=== PATIENT | female | born 1980 | race African-American/Black ===

== ENCOUNTER 2017-05-06 03:47 | Emergency (ER) | payer SELFPAY ==
[2017-05-06 03:58] VITALS: BMI 36.7
--- NOTE | 2017-05-06 04:11 | DR.GENAD ---
HPI - PCP Primary Care Physician: NFD - Complaint/Symptoms Chief Complaint:: "For about 4 days I have been coughing and having shortness of breath. I can walk to the bathroom and it feels like I have ran around the block. When I lay down I really can't breath, so I just sit up." - Nurses notes reviewed Nurses Notes Review: Yes - Source History Provided: Patient - Mode of Arrival Mode of Arrival: Ambulatory - Timing Onset of Chief Complaint: 05/01/17 Came on: Gradually - Duration Duration: Constant How lon Duration: Days - Location Location: lungs - Severity Severity: Moderate - Modifying Factors Worsens:: lying down - Associated Signs and Symptoms Associated Signs and Symptoms: cough - Other History Other History: albuterol PMH - PMH Past Medical History: No Past Medical History: Hypertension Past Surgical History: Yes 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 - Family History History of Family Medical Conditions: No - Social History Does patient currently use any type of tobacco product: No Have you used tobacco products in the last 12 months: No Type of Tobacco Use: None Does any household member use tobacco: No Alcohol Use: Occasionally Do you use any recreational Drugs:: No Lives With: Family Lives Where: Home - infectious screening In the last 2 months have you had wt loss of >10#?: NO Have you had fever, night sweats or hemotysis?: No Have you traveled outside the country in the last 6 months?: No Isolation: Standard ROS - Review of Systems Constitutional: No Symptoms Reported Eyes: No Symptoms Reported ENTM: No Symptoms Reported Respiratoy: Non-Productive Cough, Short of Breath Cardiovascular: No Symptoms Reported Gastrointestinal/Abdominal: No Symptoms Reported Genitourinary: No Symptoms Reported Neurological: No Symptoms Reported Musculoskeletal: No Symptoms Reported Integumentary: No Symptoms Reported, Dryness Endocrine: No Symptoms Reported Psychiatric: No Symptoms Reported PE - Vital Signs Vitals: Temperature 98.2 F Pulse Rate 82 Respiratory Rate 18 Blood Pressure [Left Arm] 166/99 Blood Pressure 201/125 O2 Sat by Pulse Oximetry 98 - General Limitations: No Limitations General Appearance: Alert, In No Apparent Distress - Head Head Exam: Normal Inspection - Eyes Eye exam: Normal Appearance, EOMI. negative: Scleral Icterus, Conjunctival Injection - ENT Mouth Exam: Normal Inspection - Neck Neck Exam: Normal Inspection, Full ROM, Trachea Midline - Chest Chest Inspection: Normal Inspection - Respiratory Respiratory Exam: Normal Lung Sounds Bilat. negative: Accessory Muscle Use, Respiratory Distress Respiratory Exam: Bilateral Wheezing (mild) - Cardiovascular Cardiovascular Exam: Regular Rate - Extremities Extremities Exam: Normal Inspection, Full ROM - Back Back Exam: Normal Inspection - Neurologic Neurological Exam: Alert, Oriented X3, CN II-XII Intact - Psychiatric Psychiatric Exam: Flat Affect - Skin Skin Exam: Intact, Normal Color Course - Treatment Treatment: breathing better now ROR - Labs Reviewed Result Diagrams: 05/06/17 04:35 05/06/17 04:35 Laboratory: WBC 6.7 X10^3/uL (3.6-10.0) 05/06/17 04:35 RBC 5.06 X10^6/uL (3.5-5.4) 05/06/17 04:35 Hgb 12.9 g/dL (12.0-16.0) 05/06/17 04:35 Hct 38.5 % (36.0-47.0) 05/06/17 04:35 MCV 76.2 fL (80.0-100.0) L 05/06/17 04:35 MCH 25.6 pg (27.0-34.0) L 05/06/17 04:35 MCHC 33.6 g/dL (33.0-35.0) 05/06/17 04:35 RDW 16.5 % (11.6-16.5) 05/06/17 04:35 Plt Count 209 X10^3/uL (150.0-450.0) 05/06/17 04:35 Plt Count Comment Adequate (ADEQUATE) 05/06/17 04:35 MPV 9.2 fL (7.4-11.0) 05/06/17 04:35 Neut % 47.2 % (42.0-75.0) 05/06/17 04:35 Lymph % 41.4 % (21.0-51.0) 05/06/17 04:35 [place] % 6.4 % (0.0-13.0) 05/06/17 04:35 Eos % 3.9 % (0.9-2.9) H 05/06/17 04:35 Baso % 1.1 % (0.2-1.0) H 05/06/17 04:35 Neut # 3.2 x10^3/uL (2.2-4.8) 05/06/17 04:35 Lymph # 2.8 X10^3/uL (1.3-2.9) 05/06/17 04:35 [place] # 0.4 x10^3/uL (0.3-0.8) 05/06/17 04:35 Eos # 0.3 x10^3/uL (0.0-0.2) H 05/06/17 04:35 Baso # 0.1 X10^3/uL (0.0-0.1) 05/06/17 04:35 Absolute Nucleated RBC 0.1 /100WBC 05/06/17 04:35 Plt Morphology Comment Normal (NORMAL) 05/06/17 04:35 RBC Morphology Normal (NORMAL) 05/06/17 04:35 Sodium 139 mmol/L (136-145) 05/06/17 04:35 Corrected Sodium TNP 05/06/17 04:35 Potassium 4.1 mmol/L (3.5-5.1) 05/06/17 04:35 Chloride 104 mmol/L (98-107) 05/06/17 04:35 Carbon Dioxide 26.4 mmol/L (21-32) 05/06/17 04:35 BUN 14 mg/dL (7-18) 05/06/17 04:35 Creatinine 0.96 mg/dL (0.55-1.02) 05/06/17 04:35 Est GFR (MDRD) Af Amer > 60 (>60) 05/06/17 04:35 Est GFR (MDRD) Non-Af > 60 (>60) 05/06/17 04:35 Glucose 100 mg/dL (65-99) H 05/06/17 04:35 Calcium 8.8 mg/dL (8.5-10.1) 05/06/17 04:35 Corrected Calcium TNP 05/06/17 04:35 Total Bilirubin 0.80 mg/dL (0.2-1.0) 05/06/17 04:35 AST 16 Units/L (15-37) 05/06/17 04:35 ALT 23 Units/L (12-78) 05/06/17 04:35 Alkaline Phosphatase 48 Units/L (46-116) 05/06/17 04:35 Creatine Kinase 93 Units/L (26-192) 05/06/17 04:35 CK-MB (CK-2) < 1.0 ng/mL (0-4.0) 05/06/17 04:35 CK/CKMB % Calc 1.1 % (<4) 05/06/17 04:35 Troponin I < 0.02 ng/mL (0-1.5) 05/06/17 04:35 B-Natriuretic Peptide 163 pg/mL (0-79) H 05/06/17 04:35 Total Protein 8.0 g/dL (6.4-8.2) 05/06/17 04:35 Albumin 3.7 g/dL (3.4-5.0) 05/06/17 04:35 Globulin 4.3 g/dL (2.5-4.5) 05/06/17 04:35 Albumin/Globulin Ratio 0.9 Ratio (1.1-2.1) L 05/06/17 04:35 - EKG Rate: 93 [place]: Normal Rhythm: NSR Block: None Hypertrophy: LAE ST: Normal - Diagnosis Discharge Problem: Congestive heart failure Qualifiers: Congestive heart failure type: unspecified congestive heart failure type Congestive heart failure chronicity: acute Qualified Code(s): I50.9 - Heart failure, unspecified - Discharge Plan Condition: Stable - Follow ups/Referrals Follow ups/Referrals: NFD,None [Primary Care Provider] - 3 days - Instructions
[2017-05-06] MEDS ORDERED: DUONEB 0.5 MG/3 MG NEB ONE (04:23)
[2017-05-06] MEDS ORDERED: CATAPRES TAB 0.2 MG PO ONE (04:23)
[2017-05-06] MEDS ORDERED: DUONEB 0.5 MG/3 MG ONE (04:24)
[2017-05-06] MEDS ORDERED: CATAPRES TAB 0.2 MG ONE (04:45)
[2017-05-06 04:47] LABS: BASOPHILS # (AUTO) 0.1 X10^3/uL (0.0-0.1); BASOPHILS % (AUTO) 1.1 % (0.2-1.0); EOSINOPHILS # (AUTO) 0.3 x10^3/uL (0.0-0.2); EOSINOPHILS % (AUTO) 3.9 % (0.9-2.9); HEMATOCRIT 38.5 % (36.0-47.0); HEMOGLOBIN 12.9 g/dL (12.0-16.0); LYMPHOCYTES # (AUTO) 2.8 X10^3/uL (1.3-2.9); LYMPHOCYTES % (AUTO) 41.4 % (21.0-51.0); MEAN CORPUSCULAR HEMOGLOBIN 25.6 pg (27.0-34.0); MEAN CORPUSCULAR HGB CONC 33.6 g/dL (33.0-35.0); MEAN CORPUSCULAR VOLUME 76.2 fL (80.0-100.0); MEAN PLATELET VOLUME 9.2 fL (7.4-11.0); MONOCYTES # (AUTO) 0.4 x10^3/uL (0.3-0.8); MONOCYTES % (AUTO) 6.4 % (0.0-13.0); NEUTROPHILS # (AUTO) 3.2 x10^3/uL (2.2-4.8); NEUTROPHILS % (AUTO) 47.2 % (42.0-75.0); PLATELET COUNT 209 X10^3/uL (150.0-450.0); RED BLOOD COUNT 5.06 X10^6/uL (3.5-5.4); RED CELL DISTRIBUTION WIDTH 16.5 % (11.6-16.5); WHITE BLOOD COUNT 6.7 X10^3/uL (3.6-10.0)
[2017-05-06] MEDS ORDERED: LASIX IVP ONE ×2 (04:53)
[2017-05-06 05:06] LABS: BLOOD UREA NITROGEN 14 mg/dL (7-18); CALCIUM 8.8 mg/dL (8.5-10.1); CARBON DIOXIDE 26.4 mmol/L (21-32); CHLORIDE 104 mmol/L (98-107); CREATININE 0.96 mg/dL (0.55-1.02); GLUCOSE 100 mg/dL (65-99); SODIUM 139 mmol/L (136-145); TROPONIN I < 0.02 ng/mL (0-1.5); eGFR BLACK RACES > 60 (>60); eGFR NON BLACK RACES > 60 (>60)
[2017-05-06 05:10] LABS: ALANINE AMINOTRANSFERASE 23 Units/L (12-78); ALBUMIN 3.7 g/dL (3.4-5.0); ALKALINE PHOSPHATASE 48 Units/L (46-116); ASPARTATE AMINO TRANSFERASE 16 Units/L (15-37); CKMB % 1.1 % (<4); CREATINE KINASE 93 Units/L (26-192); CREATINE KINASE MB < 1.0 ng/mL (0-4.0)
[2017-05-06 05:13] LABS: B-TYPE NATRIURETIC PEPTIDE 163 pg/mL (0-79)
[2017-05-06 05:16] LABS: PLATELET MORPHOLOGY COMMENT NORMAL (NORMAL)
[2017-05-06 05:46] VITALS: BP 166/99
--- NOTE | 2017-05-06 06:28 | RAD ---
Chest PA and lateral Indication: Dyspnea. Comparison: March 05, 2016 Findings: There is no pneumothorax. There is cardiomegaly and increased interstitial markings. No co nvincing large effusion seen. Patchy opacity in the lung bases could reflect edema but developing pn eumonia not completely excluded. Impression cardiomegaly and edema suggesting CHF. Underlying pneumonia not completely excluded. Foll owup to resolution. Reported By:
== END 2017-05-06 06:32 | disposition home or self-care (01) ==
LOC: ER 03:47
DX: I50.9 Heart failure, unspecified (principal); I51.7 Cardiomegaly; R06.02 Shortness of breath
CPT/HCPCS: 36415; 71020; 80053; 82550; 82553; 83880; 84484; 85025; 93005; 93010; 94640; 96367; 96374; 99283; A4216; A4222; J1940; J7620

== ENCOUNTER 2017-05-29 16:11 | Observation (INO) | payer SELFPAY ==
[2017-05-29] MEDS ORDERED: CATAPRES TAB 0.2 MG PO ONE (17:34)
[2017-05-29] MEDS ORDERED: CATAPRES TAB 0.2 MG ONE ×2 (17:36→23:19)
--- NOTE | 2017-05-29 17:51 | DR.GENAD ---
HPI - PCP Primary Care Physician: NFD - Complaint/Symptoms Chief Complaint Doctors Comments: chest pain and SOB Chief Complaint:: CHEST HURTS AND SOB Self Treatment fo Chief Complaint: BP MEDS, WATER PILL - Nurses notes reviewed Nurses Notes Review: Yes - Source History Provided: Patient - Mode of Arrival Mode of Arrival: Ambulatory - Timing Onset of Chief Complaint: 05/26/17 Came on: Suddenly - Duration Duration: Since Onset How lon Duration: Hours - Severity Severity: Moderate - Modifying Factors Worsens:: walking - Associated Signs and Symptoms Associated Signs and Symptoms: SOB, no nausea PMH - PMH Past Medical History: Yes Past Medical History: Hypertension Past Surgical History: Yes 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 Past Surgical History Comment: TUBAL - Family History History of Family Medical Conditions: No - Social History Does patient currently use any type of tobacco product: No Have you used tobacco products in the last 12 months: No Type of Tobacco Use: None Does any household member use tobacco: No Alcohol Use: Occasionally Do you use any recreational Drugs:: No Lives With: Alone, Family Lives Where: Home - infectious screening In the last 2 months have you had wt loss of >10#?: NO Have you had fever, night sweats or hemotysis?: No Have you traveled outside the country in the last 6 months?: No Isolation: Standard ROS - Review of Systems Constitutional: No Symptoms Reported Eyes: No Symptoms Reported ENTM: No Symptoms Reported Respiratoy: No Symptoms Reported Cardiovascular: No Symptoms Reported, Chest Pain Gastrointestinal/Abdominal: No Symptoms Reported Genitourinary: No Symptoms Reported Neurological: No Symptoms Reported Musculoskeletal: No Symptoms Reported Integumentary: No Symptoms Reported Hematologic/Lymphatic: No Symptoms Reported Endocrine: No Symptoms Reported Psychiatric: No Symptoms Reported All Other Systems: Reviewed and Negative PE - Vital Signs Vitals: Temperature 98.8 F Pulse Rate [Left] 78 Pulse Rate 88 Respiratory Rate 16 Blood Pressure [Left Arm] 161/99 Blood Pressure 207/118 O2 Sat by Pulse Oximetry 95 - General Limitations: No Limitations General Appearance: Alert, In No Apparent Distress - Head Head Exam: Normal Inspection - Eyes Eye exam: Normal Appearance, PERRL, EOMI - ENT ENT Exam: Normal Exam External Ear Exam: Normal External Inspection TM/Canal Exam: Bilateral Normal Nose Exam: Normal Nose Exam Mouth Exam: Normal Inspection Throat Exam: Normal Inspection - Neck Neck Exam: Normal Inspection, Full ROM, Trachea Midline - Chest Chest Inspection: Normal Inspection, Symmetric Chest Wall Rise. negative: Tenderness - Respiratory Respiratory Exam: Normal Lung Sounds Bilat Respiratory Exam: Bilateral Clear to Auscultation - Cardiovascular Cardiovascular Exam: Regular Rate, Normal Rhythm, Normal Heart Sounds - Abdominal Exam Abdominal Exam: Normal Inspection, Normal Bowel Sounds, Soft - Extremities Extremities Exam: Normal Inspection, Full ROM - Back Back Exam: Normal Inspection, Full ROM - Neurologic Neurological Exam: Alert, Oriented X3, CN II-XII Intact - Psychiatric Psychiatric Exam: Normal Affect, Normal Mood - Skin Skin Exam: Warm, Dry, Intact, Normal Color Course - Reevaluation 1st: Improved (176/105) ROR - Labs Reviewed Result Diagrams: 05/29/17 18:02 05/29/17 18:02 Laboratory: WBC 8.2 X10^3/uL (3.6-10.0) 05/29/17 18:02 RBC 4.54 X10^6/uL (3.5-5.4) 05/29/17 18:02 Hgb 11.8 g/dL (12.0-16.0) L 05/29/17 18:02 Hct 35.1 % (36.0-47.0) L 05/29/17 18:02 MCV 77.3 fL (80.0-100.0) L 05/29/17 18:02 MCH 26.0 pg (27.0-34.0) L 05/29/17 18:02 MCHC 33.6 g/dL (33.0-35.0) 05/29/17 18:02 RDW 16.3 % (11.6-16.5) 05/29/17 18:02 Plt Count 194 X10^3/uL (150.0-450.0) 05/29/17 18:02 MPV 9.8 fL (7.4-11.0) 05/29/17 18:02 Neut % 61.7 % (42.0-75.0) 05/29/17 18:02 Lymph % 29.6 % (21.0-51.0) 05/29/17 18:02 [place] % 4.6 % (0.0-13.0) 05/29/17 18:02 Eos % 3.3 % (0.9-2.9) H 05/29/17 18:02 Baso % 0.8 % (0.2-1.0) 05/29/17 18:02 Neut # 5.1 x10^3/uL (2.2-4.8) H 05/29/17 18:02 Lymph # 2.4 X10^3/uL (1.3-2.9) 05/29/17 18:02 [place] # 0.4 x10^3/uL (0.3-0.8) 05/29/17 18:02 Eos # 0.3 x10^3/uL (0.0-0.2) H 05/29/17 18:02 Baso # 0.1 X10^3/uL (0.0-0.1) 05/29/17 18:02 Absolute Nucleated RBC 0.1 /100WBC 05/29/17 18:02 Sodium 141 mmol/L (136-145) 05/29/17 18:02 Corrected Sodium TNP 05/29/17 18:02 Potassium 4.3 mmol/L (3.5-5.1) 05/29/17 18:02 Chloride 107 mmol/L (98-107) 05/29/17 18:02 Carbon Dioxide 29.1 mmol/L (21-32) 05/29/17 18:02 BUN 21 mg/dL (7-18) H 05/29/17 18:02 Creatinine 1.01 mg/dL (0.55-1.02) 05/29/17 18:02 Est GFR (MDRD) Af Amer > 60 (>60) 05/29/17 18:02 Est GFR (MDRD) Non-Af > 60 (>60) 05/29/17 18:02 Glucose 92 mg/dL (65-99) 05/29/17 18:02 Calcium 8.6 mg/dL (8.5-10.1) 05/29/17 18:02 Corrected Calcium TNP 05/29/17 18:02 Total Bilirubin 1.00 mg/dL (0.2-1.0) 05/29/17 18:02 AST 31 Units/L (15-37) 05/29/17 18:02 ALT 39 Units/L (12-78) 05/29/17 18:02 Alkaline Phosphatase 45 Units/L (46-116) L 05/29/17 18:02 Lactate Dehydrogenase 295 Units/L (81-234) H 05/29/17 22:44 Creatine Kinase 144 Units/L (26-192) 05/29/17 18:02 CK-MB (CK-2) < 1.0 ng/mL (0-4.0) 05/29/17 18:02 CK/CKMB % Calc 0.7 % (<4) 05/29/17 18:02 Troponin I < 0.02 ng/mL (0-1.5) 05/29/17 18:02 B-Natriuretic Peptide 340 pg/mL (0-79) H 05/29/17 18:02 Total Protein 7.4 g/dL (6.4-8.2) 05/29/17 18:02 Albumin 3.5 g/dL (3.4-5.0) 05/29/17 18:02 Globulin 3.9 g/dL (2.5-4.5) 05/29/17 18:02 Albumin/Globulin Ratio 0.9 Ratio (1.1-2.1) L 05/29/17 18:02 HCG, Qual Negative <10 mIU/mL 05/29/17 18:02 Specimen Type Clean catch urine 05/29/17 23:28 Urine Color Pale yellow (YELLOW) 05/29/17 23: Urine Appearance Clear (CLEAR) 05/29/17 23: Urine pH 7.0 (5.0 - 8.0) 05/29/17 23:28 Ur Specific [place] 1.010 (1.000-1.030) 05/29/17 23:28 Urine Protein Negative (NEGATIVE) 05/29/17 23:28 Urine Glucose (UA) Negative (NEGATIVE) 05/29/17 23:28 Urine Ketones Negative (NEGATIVE) 05/29/17 23:28 Urine Occult Blood Negative (NEGATIVE) 05/29/17 23: Urine Nitrite Negative (NEGATIVE) 05/29/17 23: Urine Bilirubin Negative (NEGATIVE) 05/29/17 23:28 Urine Urobilinogen Normal (NORMAL) 05/29/17 23:28 Ur Leukocyte Esterase Negative (NEGATIVE) 05/29/17 23:28 Urine RBC 0-3 /HPF (NEGATIVE) 05/29/17 23:28 Urine WBC 0-3 /HPF (NEGATIVE) 05/29/17 23:28 Ur Squamous Epith Cells Rare /HPF (NEGATIVE) 05/29/17 23:28 Urine Bacteria Negative /HPF (NEGATIVE) 05/29/17 23:28 Ur Culture Indicated? No/not indicated 05/29/17 23:28 Urine Opiates Screen Negative (NEG=<300) 05/29/17 23: Urine Methadone Screen Negative (NEG=<300) 05/29/17 23: Ur Barbiturates Screen Negative (NEG=<200) 05/29/17 23: Ur Phencyclidine Scrn Negative (NEG=<25) 05/29/17 23:28 Ur Amphetamines Screen Negative (NEG=<1000) 05/29/17 23: U Benzodiazepines Scrn Negative (NEG=<200) 05/29/17 23: Urine Cocaine Screen Negative (NEG=<300) 05/29/17 23: U Marijuana (THC) Screen Negative (NEG=<50) 05/29/17 23:28 - Diagnosis Discharge Problem: Congestive heart failure, Hypertensive cardiomegaly with heart failure - Discharge Plan Condition: Stable - Follow ups/Referrals Follow ups/Referrals: NFD,None [Primary Care Provider] - 3 days - Instructions Instructions: Nonspecific Chest Pain, Nonspecific Chest Pain, [id number], Hypertension, [id number], Hypertension
[2017-05-29 18:13] LABS: BASOPHILS # (AUTO) 0.1 X10^3/uL (0.0-0.1); BASOPHILS % (AUTO) 0.8 % (0.2-1.0); EOSINOPHILS # (AUTO) 0.3 x10^3/uL (0.0-0.2); EOSINOPHILS % (AUTO) 3.3 % (0.9-2.9); HEMATOCRIT 35.1 % (36.0-47.0); HEMOGLOBIN 11.8 g/dL (12.0-16.0); LYMPHOCYTES # (AUTO) 2.4 X10^3/uL (1.3-2.9); LYMPHOCYTES % (AUTO) 29.6 % (21.0-51.0); MEAN CORPUSCULAR HGB CONC 33.6 g/dL (33.0-35.0); MEAN CORPUSCULAR VOLUME 77.3 fL (80.0-100.0); MEAN PLATELET VOLUME 9.8 fL (7.4-11.0); MONOCYTES # (AUTO) 0.4 x10^3/uL (0.3-0.8); MONOCYTES % (AUTO) 4.6 % (0.0-13.0); NEUTROPHILS # (AUTO) 5.1 x10^3/uL (2.2-4.8); NEUTROPHILS % (AUTO) 61.7 % (42.0-75.0); PLATELET COUNT 194 X10^3/uL (150.0-450.0); RED BLOOD COUNT 4.54 X10^6/uL (3.5-5.4); RED CELL DISTRIBUTION WIDTH 16.3 % (11.6-16.5); WHITE BLOOD COUNT 8.2 X10^3/uL (3.6-10.0)
--- NOTE | 2017-05-29 18:16 | RAD ---
Chest, one view Indication: Shortness of breath, chest pain. Comparison: 05/06/2017 Findings: There is unchanged cardiac silhouette enlargement. There is diffuse interstitial thickenin g throughout both lungs. No definite focal infiltrates or significant pleural effusion. The bony tho rax is unremarkable. Impression: Cardiomegaly with suggestion of mild CHF. Reported By:
[2017-05-29 18:27] LABS: SERUM PREGNANCY TEST, QUAL NEGATIVE <10 mIU/mL
[2017-05-29 18:29] LABS: BLOOD UREA NITROGEN 21 mg/dL (7-18); CALCIUM 8.6 mg/dL (8.5-10.1); CARBON DIOXIDE 29.1 mmol/L (21-32); CHLORIDE 107 mmol/L (98-107); CREATININE 1.01 mg/dL (0.55-1.02); GLUCOSE 92 mg/dL (65-99); SODIUM 141 mmol/L (136-145); TROPONIN I < 0.02 ng/mL (0-1.5); eGFR BLACK RACES > 60 (>60); eGFR NON BLACK RACES > 60 (>60)
[2017-05-29 18:33] LABS: ALANINE AMINOTRANSFERASE 39 Units/L (12-78); ALBUMIN 3.5 g/dL (3.4-5.0); ALKALINE PHOSPHATASE 45 Units/L (46-116); ASPARTATE AMINO TRANSFERASE 31 Units/L (15-37); CKMB % 0.7 % (<4); CREATINE KINASE 144 Units/L (26-192); CREATINE KINASE MB < 1.0 ng/mL (0-4.0); TOTAL PROTEIN 7.4 g/dL (6.4-8.2)
[2017-05-29] MEDS ORDERED: LASIX IM ONE (18:44)
[2017-05-29] MEDS ORDERED: LASIX ONE (19:37)
[2017-05-29] MEDS ORDERED: DUONEB 0.5 MG/3 MG NEB ONE ×2 (20:45→22:15)
[2017-05-29] MEDS ORDERED: DUONEB 0.5 MG/3 MG ONE ×2 (20:51→22:17)
[2017-05-29] MEDS ORDERED: NS 100 ML IV 100 ML IV ONE (21:17)
--- NOTE | 2017-05-29 22:08 | CT ---
CT chest without contrast Indication: Chest pain, shortness of breath Comparison: Chest x-ray from earlier tonight. Technique: CT images of the chest were obtained without contrast. Automatic exposure control was uti lized. Findings: No acute skeletal abnormality. The upper abdomen is unremarkable. There is mild cardiomegaly with trace pericardial effusion. The thoracic aorta is grossly normal in appearance. No obvious mediastinal adenopathy identified, within noncontrast limitations. There are diffuse bilateral alveolar opacities. Trace bilateral pleural effusions. The major airways are paten t. Impression: Cardiomegaly with diffuse alveolar opacities most suggestive for CHF, although multifocal pneumonia could have a similar appearance in the correct clinical setting. Correlation is recommended. Trace bilateral pleural effusions, trace pericardial effusion. Reported By:
[2017-05-29] MEDS ORDERED: LASIX IVP ONE ×2 (22:18→22:20)
[2017-05-29] MEDS ORDERED: LEVAQUIN PREMIX IV 500 MG 500 MG/100 ML BAG IV ONE ×2 (22:21→22:27)
[2017-05-29] MEDS ORDERED: DECADRON INJ IM ONE (22:22)
[2017-05-29] MEDS ORDERED: DECADRON INJ ONE (22:26)
[2017-05-29 23:35] LABS: BILIRUBIN,URINE NEGATIVE (NEGATIVE); BLOOD/HEMOGLOBIN,URINE NEGATIVE (NEGATIVE); GLUCOSE, URINE NEGATIVE (NEGATIVE); KETONES,URINE NEGATIVE (NEGATIVE); LEUKOCYTE ESTERASE ,URINE NEGATIVE (NEGATIVE); NITRITES,URINE NEGATIVE (NEGATIVE); PROTEIN,URINE NEGATIVE (NEGATIVE); UROBILINOGEN,URINE NORMAL (NORMAL)
[2017-05-29 23:42] LABS: COLOR,URINE PALE YELLOW (YELLOW)
[2017-05-29 23:43] LABS: APPEARANCE,URINE CLEAR (CLEAR); BACTERIA,URINE NEGATIVE /HPF (NEGATIVE); RBC,URINE 0-3 /HPF (NEGATIVE); SQUAMOUS EPITHELIAL CELL,UR RARE /HPF (NEGATIVE)
[2017-05-30] MEDS ORDERED: VASOTEC INJ 1.25 MG VIAL ONE (00:19)
[2017-05-30] MEDS ORDERED: VASOTEC INJ 1.25 MG VIAL IVP ONE (00:33)
[2017-05-30] MEDS ORDERED: CATAPRES-TTS-1 TD SCH (02:00)
[2017-05-30 03:02] VITALS: BMI 35.4
[2017-05-30 06:07] LABS: BASOPHILS % (AUTO) 0.3 % (0.2-1.0); EOSINOPHILS % (AUTO) 0.1 % (0.9-2.9); HEMATOCRIT 35.3 % (36.0-47.0); HEMOGLOBIN 12.1 g/dL (12.0-16.0); LYMPHOCYTES # (AUTO) 0.6 X10^3/uL (1.3-2.9); LYMPHOCYTES % (AUTO) 7.4 % (21.0-51.0); MEAN CORPUSCULAR HEMOGLOBIN 26.2 pg (27.0-34.0); MEAN CORPUSCULAR HGB CONC 34.2 g/dL (33.0-35.0); MEAN CORPUSCULAR VOLUME 76.5 fL (80.0-100.0); MEAN PLATELET VOLUME 10.1 fL (7.4-11.0); MONOCYTES # (AUTO) 0.1 x10^3/uL (0.3-0.8); MONOCYTES % (AUTO) 1.7 % (0.0-13.0); NEUTROPHILS # (AUTO) 7.8 x10^3/uL (2.2-4.8); NEUTROPHILS % (AUTO) 90.5 % (42.0-75.0); PLATELET COUNT 184 X10^3/uL (150.0-450.0); RED BLOOD COUNT 4.62 X10^6/uL (3.5-5.4); RED CELL DISTRIBUTION WIDTH 16.8 % (11.6-16.5); WHITE BLOOD COUNT 8.6 X10^3/uL (3.6-10.0)
[2017-05-30 06:35] LABS: ALANINE AMINOTRANSFERASE 45 Units/L (12-78); ALBUMIN 3.5 g/dL (3.4-5.0); ALKALINE PHOSPHATASE 46 Units/L (46-116); ASPARTATE AMINO TRANSFERASE 40 Units/L (15-37); BLOOD UREA NITROGEN 18 mg/dL (7-18); CALCIUM 8.7 mg/dL (8.5-10.1); CARBON DIOXIDE 27.3 mmol/L (21-32); CHLORIDE 103 mmol/L (98-107); COR NA(FOR HYPERGLY) 139 mmol/L (136-145); CREATININE 1.09 mg/dL (0.55-1.02); GLUCOSE 154 mg/dL (65-99); SODIUM 138 mmol/L (136-145); TOTAL PROTEIN 7.7 g/dL (6.4-8.2); eGFR BLACK RACES > 60 (>60); eGFR NON BLACK RACES > 60 (>60)
[2017-05-30 07:09] LABS: PLATELET MORPHOLOGY COMMENT NORMAL (NORMAL)
[2017-05-30] MEDS ORDERED: PREVNAR 13 IM ONE (09:00)
[2017-05-30] MEDS ORDERED: LASIX IVP SCH (09:00)
[2017-05-30] MEDS ORDERED: MICRO K EXTEN CAP 10 MEQ PO SCH (09:00)
--- NOTE | 2017-05-30 15:16 | RAD ---
HISTORY: Congestive heart failure Study: Chest one view Comparison: May 29, 2017 Findings: The heart remains enlarged. No definite residual congestive heart failure is identified. The lungs a re hypoinflated contributing to crowding of the lung markings at the lung bases. No definite basilar infiltrates are identified. No pleural effusions are identified. The bony thorax is unremarkable. IMPRESSION: Cardiomegaly without congestive heart failure on today's examination. Lungs hypoinflated but clear Reported By:
[2017-05-30] MEDS ORDERED: ZESTRIL TAB 20 MG ONE (15:31)
[2017-05-30] MEDS ORDERED: ZESTRIL TAB 20 MG PO SCH (16:00)
[2017-05-31] MEDS ORDERED: TENORMIN PO SCH (09:00)
[2017-06-07 18:30] VITALS: BP 207/118
--- NOTE | 2017-06-07 18:30 | DR.SSS ---
Short Stay Summary - Admission Date Date of Admission: 05/29/17 - Discharge Date Discharge Date: 05/30/17 - Admission Diagnoses Admission Diagnoses: CHEST PAIN WITH CARDIOMEGALY CHF - Discharge Diagnoses Discharge Diagnoses: SAME ADMISSION DIAGNOSIS - Chief Complaint Chief Complaint: CHEST PAIN X 2 HOURS - History of Present Illness History of Present Illness: THE PATIENT IS A 36YO FEMALE WHO PRESENTED TO ED WITH 2 HOUR HISTORY OF MODERATE CHEST PAIN. PATIENT NOTED TO HAVE MILD CHF ON XRAY. 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 - Allergies Allergies/Adverse Reactions: Allergies Allergy/AdvReac Type Severity Reaction Status Date / Time No Known Drug Allergies Allergy Verified 05/30/17 03:50 - Medications Home Medications: Atenolol 25 mg PO DAILY 05/29/17 [History Confirmed 05/29/17] - Social History Does patient currently use any type of tobacco product: No Have you used tobacco products in the last 12 months: No Type of Tobacco Use: None Does any household member use tobacco: No Alcohol Use: Occasionally Drug Use: None - Review of Systems Constitutional: Weakness Eyes: No Symptoms Reported ENT: No Symptoms Reported Respiratory: Shortness of Breath Cardiovascular: Chest Pain Gastrointestinal: No Symptoms Reported Genitourinary: No Symptoms Reported Musculoskeletal: No Symptoms Reported Skin: No Symptoms Reported Neurological: No Symptoms Reported - Physical Exam Temperature: 97.8 F Blood Pressure: 207/118 Respiratory Rate: 17 Pulse Rate: 88 O2 Sat by Pulse Oximetry: 96 Oriented: Normal Eyes: Normal Ear: Normal Nose: Normal Throat: Normal Respiratory: Clear Throughout, RLL Rhonchi Cardiovascular: Normal : Normal Auscultation: Bowel Sounds: Normal Palpation: Normal Skin: Normal Musculoskeletal: Normal Psychiatric: Normal Mood Description: Calm Affect: Normal Speech Pattern: Clear - Labs Labs: Laboratory Last Values WBC 8.6 X10^3/uL (3.6-10.0) 05/30/17 05:25 RBC 4.62 X10^6/uL (3.5-5.4) 05/30/17 05:25 Hgb 12.1 g/dL (12.0-16.0) 05/30/17 05:25 Hct 35.3 % (36.0-47.0) L 05/30/17 05:25 MCV 76.5 fL (80.0-100.0) L 05/30/17 05:25 MCH 26.2 pg (27.0-34.0) L 05/30/17 05:25 MCHC 34.2 g/dL (33.0-35.0) 05/30/17 05:25 RDW 16.8 % (11.6-16.5) H 05/30/17 05:25 Plt Count 184 X10^3/uL (150.0-450.0) 05/30/17 05:25 Plt Count Comment Adequate (ADEQUATE) 05/30/17 05:25 MPV 10.1 fL (7.4-11.0) 05/30/17 05:25 Neut % 90.5 % (42.0-75.0) H 05/30/17 05:25 Lymph % 7.4 % (21.0-51.0) L 05/30/17 05:25 [place] % 1.7 % (0.0-13.0) 05/30/17 05:25 Eos % 0.1 % (0.9-2.9) L 05/30/17 05:25 Baso % 0.3 % (0.2-1.0) 05/30/17 05:25 Neut # 7.8 x10^3/uL (2.2-4.8) H 05/30/17 05:25 Lymph # 0.6 X10^3/uL (1.3-2.9) L 05/30/17 05:25 [place] # 0.1 x10^3/uL (0.3-0.8) L 05/30/17 05:25 Eos # 0.0 x10^3/uL (0.0-0.2) 05/30/17 05:25 Baso # 0.0 X10^3/uL (0.0-0.1) 05/30/17 05:25 Absolute Nucleated RBC 0.0 /100WBC 05/30/17 05:25 Total Counted 100 05/30/17 05:25 Neutrophils % (Manual) 90 % (39-76) H 05/30/17 05:25 Lymphocytes % (Manual) 8 % (13-43) L 05/30/17 05:25 Monocytes % (Manual) 2 % (4-9) L 05/30/17 05:25 Plt Morphology Comment Normal (NORMAL) 05/30/17 05:25 RBC Morphology Normal (NORMAL) 05/30/17 05:25 Sodium 138 mmol/L (136-145) 05/30/17 05:25 Corrected Sodium 139 mmol/L (136-145) 05/30/17 05:25 Potassium 3.5 mmol/L (3.5-5.1) 05/30/17 05:25 Chloride 103 mmol/L (98-107) 05/30/17 05:25 Carbon Dioxide 27.3 mmol/L (21-32) 05/30/17 05:25 BUN 18 mg/dL (7-18) 05/30/17 05:25 Creatinine 1.09 mg/dL (0.55-1.02) H 05/30/17 05:25 Est GFR (MDRD) Af Amer > 60 (>60) 05/30/17 05:25 Est GFR (MDRD) Non-Af > 60 (>60) 05/30/17 05:25 Glucose 154 mg/dL (65-99) H 05/30/17 05:25 Calcium 8.7 mg/dL (8.5-10.1) 05/30/17 05:25 Corrected Calcium TNP 05/30/17 05:25 Total Bilirubin 1.30 mg/dL (0.2-1.0) H 05/30/17 05:25 AST 40 Units/L (15-37) H 05/30/17 05:25 ALT 45 Units/L (12-78) 05/30/17 05:25 Alkaline Phosphatase 46 Units/L (46-116) 05/30/17 05:25 Lactate Dehydrogenase 295 Units/L (81-234) H 05/29/17 22:44 Creatine Kinase 144 Units/L (26-192) 05/29/17 18:02 CK-MB (CK-2) < 1.0 ng/mL (0-4.0) 05/29/17 18:02 CK/CKMB % Calc 0.7 % (<4) 05/29/17 18:02 Troponin I < 0.02 ng/mL (0-1.5) 05/29/17 18:02 B-Natriuretic Peptide 340 pg/mL (0-79) H 05/29/17 18:02 Total Protein 7.7 g/dL (6.4-8.2) 05/30/17 05:25 Albumin 3.5 g/dL (3.4-5.0) 05/30/17 05:25 Globulin 4.2 g/dL (2.5-4.5) 05/30/17 05:25 Albumin/Globulin Ratio 0.8 Ratio (1.1-2.1) L 05/30/17 05:25 HCG, Qual Negative <10 mIU/mL 05/29/17 18:02 Specimen Type Clean catch urine 05/29/17 23:28 Urine Color Pale yellow (YELLOW) 05/29/17 23: Urine Appearance Clear (CLEAR) 05/29/17 23: Urine pH 7.0 (5.0 - 8.0) 05/29/17 23: Ur Specific [place] 1.010 (1.000-1.030) 05/29/17 23:28 Urine Protein Negative (NEGATIVE) 05/29/17 23:28 Urine Glucose (UA) Negative (NEGATIVE) 05/29/17 23: Urine Ketones Negative (NEGATIVE) 05/29/17 23:28 Urine Occult Blood Negative (NEGATIVE) 05/29/17 23:28 Urine Nitrite Negative (NEGATIVE) 05/29/17 23:28 Urine Bilirubin Negative (NEGATIVE) 05/29/17 23:28 Urine Urobilinogen Normal (NORMAL) 05/29/17 23:28 Ur Leukocyte Esterase Negative (NEGATIVE) 05/29/17 23:28 Urine RBC 0-3 /HPF (NEGATIVE) 05/29/17 23:28 Urine WBC 0-3 /HPF (NEGATIVE) 05/29/17 23:28 Ur Squamous Epith Cells Rare /HPF (NEGATIVE) 05/29/17 23:28 Urine Bacteria Negative /HPF (NEGATIVE) 05/29/17 23:28 Ur Culture Indicated? No/not indicated 05/29/17 23:28 Urine Opiates Screen Negative (NEG=<300) 05/29/17 23:28 Urine Methadone Screen Negative (NEG=<300) 05/29/17 23:28 Ur Barbiturates Screen Negative (NEG=<200) 05/29/17 23:28 Ur Phencyclidine Scrn Negative (NEG=<25) 05/29/17 23:28 Ur Amphetamines Screen Negative (NEG=<1000) 05/29/17 23:28 U Benzodiazepines Scrn Negative (NEG=<200) 05/29/17 23:28 Urine Cocaine Screen Negative (NEG=<300) 05/29/17 23:28 U Marijuana (THC) Screen Negative (NEG=<50) 05/29/17 23:28 - Assessment/Plan 1: chest pain: telemetry, ekg 2: chf: diurectics, cxr - Hospital Course Hospital Course: THE PATIENT RECEIVED DIURECTICS. HAD RESOLUTION OF CHF ON CHEST XRAY. EKG UNREMARKABLE. LABS STABLE. - Discharge Medications Discharge Medications: Atenolol 25 mg PO DAILY 05/29/17 [History] Lisinopril 20 mg PO DAILY #30 tablet 05/30/17 [Rx] - Discharge Disposition Discharge Disposition: HOME
== END 2017-05-30 17:32 | disposition home or self-care (01) ==
LOC: ER 16:26 → ICU 05-30 01:43
PROVIDERS: ADMIT Internal Medicine; ATTEND Internal Medicine
PROC: 3E0234Z Introduction of Serum, Toxoid and Vaccine into Muscle, Percutaneous Approach (ICD-10-PCS; principal; 2017-05-30)
DX: I50.9 Heart failure, unspecified (principal); I51.7 Cardiomegaly; I16.0 Hypertensive urgency; R07.89 Other chest pain; R06.02 Shortness of breath; I10 Essential (primary) hypertension; I31.3 Pericardial effusion (noninflammatory); J90 Pleural effusion, not elsewhere classified; D64.89 Other specified anemias; Z23 Encounter for immunization; Z79.899 Other long term (current) drug therapy
CPT/HCPCS: 36415; 71010; 71020; 71250; 80053; 80307; 81001; 82550; 82553; 83615; 83880; 84484; 84703; 85025; 87040; 93005; 93010; 94640; 96365; 96372; 96374; 96375; 99217; 99284; A4216; A4222; 90670; G0378; G0434; J1100; J1940; J1956; J3490; J7620

== ENCOUNTER → 2017-09-16 | Outpatient (CLI) | payer OTHER ==
[2017-06-07 18:30] VITALS: BP 207/118
--- NOTE | 2017-09-16 15:19 | RAD ---
Examination: Thoracic spine, two views History: Low back pain no trauma Findings: Normal curvature, segmentation and alignment. There is disc narrowing with anterior osteoph yte formation at T7-8. No fracture, osteolytic disease or subluxation is noted. Impression: Localized degenerative changes with osteophyte production at T7-8 interspace. No acute fe atures detected. Reported By:
--- NOTE | 2017-09-16 15:39 | RAD ---
Examination: Lumbar spine, AP and lateral views History: Back pain no trauma Findings: Normal curvature and alignment. Vertebral bodies and disc spaces are normal. There is at le ast partial sacralization of the left transverse process of L5 with possible assimilation joint forma tion with the sacrum. Pedicles and sacroiliac joints appear normal. Impression: No acute process identified. Left unilateral sacralization of L5 with possible assimilati on joint formation. This may be a source of back pain. Follow-up MR may be helpful to further define. Reported By:
== END ==
LOC: RAD 14:36
PROVIDERS: ATTEND Nurse Practitioner Family
DX: M54.5 Low back pain (principal)
CPT/HCPCS: 72072; 72100

== ENCOUNTER 2017-09-27 10:24 | Emergency (ER) | payer OTHER ==
[2017-09-27 10:39] VITALS: BP 207/119; BMI 39.6
--- NOTE | 2017-09-27 10:58 | DR.GENAD ---
HPI - PCP Primary Care Physician: KAMILA CHAPMAN - Complaint/Symptoms Chief Complaint Doctors Comments: Patient states that she has been having problems with breathing for two months or more. She states that she needs to have her gallbladder taken out and she has fluid around the heart. She has had an echo which was normal and is on lasix 20mg bid for fluid retention. 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 Past Surgical History Comment: TUBAL - Family History History of Family Medical Conditions: No - Social History Does any household member use tobacco: No Alcohol Use: Occasionally Do you use any recreational Drugs:: No Lives With: Family Lives Where: Home - infectious screening In the last 2 months have you had wt loss of >10#?: NO Have you had fever, night sweats or hemotysis?: No Have you traveled outside the country in the last 6 months?: No Isolation: Standard ROS - Review of Systems Constitutional: No Symptoms Reported Eyes: No Symptoms Reported ENTM: No Symptoms Reported Respiratoy: No Symptoms Reported Cardiovascular: No Symptoms Reported Gastrointestinal/Abdominal: No Symptoms Reported Genitourinary: No Symptoms Reported Neurological: No Symptoms Reported Musculoskeletal: No Symptoms Reported Integumentary: No Symptoms Reported Hematologic/Lymphatic: No Symptoms Reported Endocrine: No Symptoms Reported Psychiatric: No Symptoms Reported All Other Systems: Reviewed and Negative PE - Vital Signs Vitals: Temperature 98 F Pulse Rate 85 Respiratory Rate 24 Blood Pressure [Right Arm] 119/62 Blood Pressure [Left Arm] 158/101 Blood Pressure 207/119 O2 Sat by Pulse Oximetry 91 - General General Appearance: Alert, In No Apparent Distress - Head Head Exam: Normal Inspection, Atraumatic - Eyes Eye exam: Normal Appearance, PERRL, EOMI - ENT ENT Exam: Normal Exam External Ear Exam: Normal External Inspection TM/Canal Exam: Bilateral Normal Nose Exam: Normal Nose Exam Mouth Exam: Normal Inspection Throat Exam: Normal Inspection - Neck Neck Exam: Normal Inspection - Chest Chest Inspection: Normal Inspection - Respiratory Respiratory Exam: Normal Lung Sounds Bilat Respiratory Exam: Bilateral Clear to Auscultation - Cardiovascular Cardiovascular Exam: Regular Rate - Abdominal Exam Abdominal Exam: Normal Inspection, Normal Bowel Sounds Abdominal Tenderness: RLQ - Extremities Extremities Exam: Normal Inspection, Full ROM - Back Back Exam: Normal Inspection - Neurologic Neurological Exam: Alert, Oriented X3, CN II-XII Intact - Psychiatric Psychiatric Exam: Normal Affect, Normal Mood - Skin Skin Exam: Warm, Dry, Intact Course - Education/Counseling Education/Counseling: Education Educated On: Treatment, Diagnosis, Prognosis, Needs for Follow Up ROR - Labs Reviewed Laboratory Results Reviewed?: Yes (H pylori positive) Result Diagrams: 09/27/17 11:11 09/27/17 11:11 Laboratory: WBC 7.9 X10^3/uL (3.6-10.0) 09/27/17 11:11 RBC 4.62 X10^6/uL (3.5-5.4) 09/27/17 11:11 Hgb 12.2 g/dL (12.0-16.0) 09/27/17 11:11 Hct 36.5 % (36.0-47.0) 09/27/17 11:11 MCV 78.9 fL (80.0-100.0) L 09/27/17 11:11 MCH 26.4 pg (27.0-34.0) L 09/27/17 11:11 MCHC 33.5 g/dL (33.0-35.0) 09/27/17 11:11 RDW 16.1 % (11.6-16.5) 09/27/17 11:11 Plt Count 172 X10^3/uL (150.0-450.0) 09/27/17 11:11 MPV 9.5 fL (7.4-11.0) 09/27/17 11:11 Neut % 60.4 % (42.0-75.0) 09/27/17 11:11 Lymph % 26.8 % (21.0-51.0) 09/27/17 11:11 Jones % 8.1 % (0.0-13.0) 09/27/17 11:11 Eos % 3.8 % (0.9-2.9) H 09/27/17 11:11 Baso % 0.9 % (0.2-1.0) 09/27/17 11:11 Neut # 4.8 x10^3/uL (2.2-4.8) 09/27/17 11:11 Lymph # 2.1 X10^3/uL (1.3-2.9) 09/27/17 11:11 Jones # 0.6 x10^3/uL (0.3-0.8) 09/27/17 11:11 Eos # 0.3 x10^3/uL (0.0-0.2) H 09/27/17 11:11 Baso # 0.1 X10^3/uL (0.0-0.1) 09/27/17 11:11 Absolute Nucleated RBC 0.1 /100WBC 09/27/17 11:11 D-Dimer 279 ng/mL (0-400) 09/27/17 11:11 Sodium 141 mmol/L (136-145) 09/27/17 11:11 Corrected Sodium TNP 09/27/17 11:11 Potassium 4.5 mmol/L (3.5-5.1) 09/27/17 11:11 Chloride 104 mmol/L (98-107) 09/27/17 11:11 Carbon Dioxide 29.9 mmol/L (21-32) 09/27/17 11:11 BUN 14 mg/dL (7-18) 09/27/17 11:11 Creatinine 1.05 mg/dL (0.55-1.02) H 09/27/17 11:11 Est GFR (MDRD) Af Amer > 60 (>60) 09/27/17 11:11 Est GFR (MDRD) Non-Af > 60 (>60) 09/27/17 11:11 Glucose 98 mg/dL (65-99) 09/27/17 11:11 Calcium 8.8 mg/dL (8.5-10.1) 09/27/17 11:11 Corrected Calcium TNP 09/27/17 11:11 Total Bilirubin 0.60 mg/dL (0.2-1.0) 09/27/17 11:11 AST 13 Units/L (15-37) L 09/27/17 11:11 ALT 17 Units/L (12-78) 09/27/17 11:11 Alkaline Phosphatase 50 Units/L (46-116) 09/27/17 11:11 B-Natriuretic Peptide 248 pg/mL (0-79) H 09/27/17 11:11 Total Protein 7.3 g/dL (6.4-8.2) 09/27/17 11:11 Albumin 3.5 g/dL (3.4-5.0) 09/27/17 11:11 Globulin 3.8 g/dL (2.5-4.5) 09/27/17 11:11 Albumin/Globulin Ratio 0.9 Ratio (1.1-2.1) L 09/27/17 11:11 H. pylori IgG Antibody Positive (NEGATIVE) A 09/27/17 11:11 - XRAY XRAY Interpreted by: Radiologist (Chest: Persistent cardiomegaly of moderate degree. The aorta is prominent. There is mild pulmonary vascular congestion. No definite consolidation, pleural fluid or pneumothorax. Impression: Stable cardiomegaly with mild ulmonary vascular congestion.) - Diagnosis Discharge Problem: Helicobacter pylori gastritis, Stable cardiomegaly , Uncontrolled hypertension - Discharge Plan Condition: Stable - Follow ups/Referrals Follow ups/Referrals: KAMILA CHAPMAN [Primary Care Provider] - 3 days - Instructions
[2017-09-27 11:26] LABS: BASOPHILS # (AUTO) 0.1 X10^3/uL (0.0-0.1); BASOPHILS % (AUTO) 0.9 % (0.2-1.0); EOSINOPHILS # (AUTO) 0.3 x10^3/uL (0.0-0.2); EOSINOPHILS % (AUTO) 3.8 % (0.9-2.9); HEMATOCRIT 36.5 % (36.0-47.0); HEMOGLOBIN 12.2 g/dL (12.0-16.0); LYMPHOCYTES # (AUTO) 2.1 X10^3/uL (1.3-2.9); LYMPHOCYTES % (AUTO) 26.8 % (21.0-51.0); MEAN CORPUSCULAR HEMOGLOBIN 26.4 pg (27.0-34.0); MEAN CORPUSCULAR HGB CONC 33.5 g/dL (33.0-35.0); MEAN CORPUSCULAR VOLUME 78.9 fL (80.0-100.0); MEAN PLATELET VOLUME 9.5 fL (7.4-11.0); MONOCYTES # (AUTO) 0.6 x10^3/uL (0.3-0.8); MONOCYTES % (AUTO) 8.1 % (0.0-13.0); NEUTROPHILS # (AUTO) 4.8 x10^3/uL (2.2-4.8); NEUTROPHILS % (AUTO) 60.4 % (42.0-75.0); PLATELET COUNT 172 X10^3/uL (150.0-450.0); RED BLOOD COUNT 4.62 X10^6/uL (3.5-5.4); RED CELL DISTRIBUTION WIDTH 16.1 % (11.6-16.5); WHITE BLOOD COUNT 7.9 X10^3/uL (3.6-10.0)
[2017-09-27 11:28] LABS: BLOOD UREA NITROGEN 14 mg/dL (7-18); CALCIUM 8.8 mg/dL (8.5-10.1); CARBON DIOXIDE 29.9 mmol/L (21-32); CHLORIDE 104 mmol/L (98-107); CREATININE 1.05 mg/dL (0.55-1.02); SODIUM 141 mmol/L (136-145); eGFR BLACK RACES > 60 (>60); eGFR NON BLACK RACES > 60 (>60)
[2017-09-27 11:41] LABS: B-TYPE NATRIURETIC PEPTIDE 248 pg/mL (0-79)
--- NOTE | 2017-09-27 11:43 | RAD ---
Examination: AP chest History: Chest hurts, SOB Comparison reference 05/30/2017 Findings: Persistent cardiomegaly of moderate degree. The aorta is prominent. There is mild pulmonary vascular congestion. No definite consolidation, pleural fluid or pneumothorax. Impression: Stable cardiomegaly with mild pulmonary vascular congestion. Reported By:
[2017-09-27 12:01] LABS: ALANINE AMINOTRANSFERASE 17 Units/L (12-78); ALBUMIN 3.5 g/dL (3.4-5.0); ALKALINE PHOSPHATASE 50 Units/L (46-116); ASPARTATE AMINO TRANSFERASE 13 Units/L (15-37); TOTAL PROTEIN 7.3 g/dL (6.4-8.2)
== END 2017-09-27 12:53 | disposition home or self-care (01) ==
LOC: ER 10:24
DX: I51.7 Cardiomegaly (principal); B96.81 Helicobacter pylori [H. pylori] as the cause of diseases classified elsewhere; I10 Essential (primary) hypertension; R07.89 Other chest pain
CPT/HCPCS: 36415; 71010; 80053; 83880; 85025; 85378; 86677; 99282

== ENCOUNTER 2017-10-02 10:30 | Observation (INO) | payer OTHER ==
--- NOTE | 2017-10-02 12:24 | RAD ---
HISTORY: "Can't breathe'. "Chest hurts'. Study: Chest one view. Comparison: September 27, 2017. Findings: The trachea is in the midline. The cardiac silhouette is enlarged. There is prominence of t he central pulmonary vasculature, with mild perihilar interstitial edema. There is no evidence of con solidation, significant effusion or pneumothorax. No acute osseous abnormalities identified. IMPRESSION: 1. Cardiomegaly, with central pulmonary vascular congestion and perihilar interstitial edema. Reported By:
[2017-10-02 13:01] LABS: BASOPHILS # (AUTO) 0.1 X10^3/uL (0.0-0.1); EOSINOPHILS # (AUTO) 0.2 x10^3/uL (0.0-0.2); EOSINOPHILS % (AUTO) 2.6 % (0.9-2.9); HEMATOCRIT 34.7 % (36.0-47.0); MEAN CORPUSCULAR HEMOGLOBIN 26.8 pg (27.0-34.0); MEAN CORPUSCULAR HGB CONC 34.5 g/dL (33.0-35.0); MEAN CORPUSCULAR VOLUME 77.8 fL (80.0-100.0); MEAN PLATELET VOLUME 9.6 fL (7.4-11.0); MONOCYTES # (AUTO) 0.8 x10^3/uL (0.3-0.8); MONOCYTES % (AUTO) 10.5 % (0.0-13.0); NEUTROPHILS # (AUTO) 4.4 x10^3/uL (2.2-4.8); NEUTROPHILS % (AUTO) 58.9 % (42.0-75.0); PLATELET COUNT 169 X10^3/uL (150.0-450.0); RED BLOOD COUNT 4.46 X10^6/uL (3.5-5.4); RED CELL DISTRIBUTION WIDTH 15.6 % (11.6-16.5); WHITE BLOOD COUNT 7.4 X10^3/uL (3.6-10.0)
[2017-10-02 13:01] LABS: ALANINE AMINOTRANSFERASE 20 Units/L (12-78); ALBUMIN 3.7 g/dL (3.4-5.0); ALKALINE PHOSPHATASE 48 Units/L (46-116); AMYLASE 48 Units/L (25-115); ASPARTATE AMINO TRANSFERASE 17 Units/L (15-37); BLOOD UREA NITROGEN 17 mg/dL (7-18); CARBON DIOXIDE 21.4 mmol/L (21-32); CHLORIDE 104 mmol/L (98-107); CREATININE 1.02 mg/dL (0.55-1.02); LIPASE 208 Units/L (73-393); SODIUM 137 mmol/L (136-145); TOTAL PROTEIN 7.7 g/dL (6.4-8.2); eGFR BLACK RACES > 60 (>60); eGFR NON BLACK RACES > 60 (>60)
[2017-10-02] MEDS: NS 1/2 1000 ML IV 1,000 ML IV SCH ×2 (15:42)
[2017-10-02] MEDS: CATAPRES TAB 0.1 MG PO PRN (16:24)
[2017-10-02] MEDS ORDERED: PROTONIX INJ 40 MG VIAL IVP SCH (17:00)
--- NOTE | 2017-10-02 18:14 | US ---
HISTORY: Abdominal pain Study: Right upper quadrant abdominal ultrasound Comparison: None Technique: Multiple parham scale and color flow Doppler images of the right upper quadrant were obtaine d. Findings: Evaluation is technically limited due to patient body habitus. Given these limitations, the liver is normal in size and echotexture without focal lesion. The partially contracted gallbladder is unremark able without evidence of cholelithiasis, layering sludge, wall thickening/edema or pericholecystic fl uid. The common bile duct is normal in caliber, measuring 3.5 mm. No biliary ductal dilatation is see n. The right kidney is normal in size and echogenicity, measuring 9.9 x 5.3 x 4.7 cm. No echogenic right renal stones or hydronephrosis is identified. No significant free fluid is identified within the rig ht abdomen. IMPRESSION: Unremarkable examination of the right upper quadrant. Reported By:
[2017-10-02] MEDS ORDERED: NS 1/2 1000 ML IV 1,000 ML IV ONE (20:23)
[2017-10-02] MEDS: PEPCID 20 MG IV PREMIX* 20 MG/50 ML BAG IV SCH (20:45)
[2017-10-03] MEDS: NS 1/2 1000 ML IV 1,000 ML IV SCH ×2 (02:21→16:54)
[2017-10-03 05:36] LABS: ALANINE AMINOTRANSFERASE 20 Units/L (12-78); ALKALINE PHOSPHATASE 43 Units/L (46-116); ASPARTATE AMINO TRANSFERASE 25 Units/L (15-37); BLOOD UREA NITROGEN 19 mg/dL (7-18); CALCIUM 8.3 mg/dL (8.5-10.1); CARBON DIOXIDE 20.9 mmol/L (21-32); CHLORIDE 106 mmol/L (98-107); COR CA(FOR HYPOALB) 9.1 mg/dL (8.5-10.1); CREATININE 0.94 mg/dL (0.55-1.02); SODIUM 138 mmol/L (136-145); TOTAL PROTEIN 6.6 g/dL (6.4-8.2); eGFR BLACK RACES > 60 (>60); eGFR NON BLACK RACES > 60 (>60)
[2017-10-03 06:58] LABS: BASOPHILS % (AUTO) 0.7 % (0.2-1.0); EOSINOPHILS # (AUTO) 0.3 x10^3/uL (0.0-0.2); HEMATOCRIT 32.1 % (36.0-47.0); HEMOGLOBIN 10.9 g/dL (12.0-16.0); LYMPHOCYTES # (AUTO) 1.8 X10^3/uL (1.3-2.9); MEAN CORPUSCULAR HEMOGLOBIN 26.8 pg (27.0-34.0); MEAN CORPUSCULAR HGB CONC 33.8 g/dL (33.0-35.0); MEAN CORPUSCULAR VOLUME 79.2 fL (80.0-100.0); MEAN PLATELET VOLUME 11.5 fL (7.4-11.0); MONOCYTES # (AUTO) 0.9 x10^3/uL (0.3-0.8); MONOCYTES % (AUTO) 14.2 % (0.0-13.0); NEUTROPHILS # (AUTO) 3.3 x10^3/uL (2.2-4.8); NEUTROPHILS % (AUTO) 52.1 % (42.0-75.0); PLATELET COUNT 166 X10^3/uL (150.0-450.0); RED BLOOD COUNT 4.05 X10^6/uL (3.5-5.4); RED CELL DISTRIBUTION WIDTH 15.9 % (11.6-16.5); WHITE BLOOD COUNT 6.3 X10^3/uL (3.6-10.0)
[2017-10-03] MEDS ORDERED: APRESOLINE INJ 20 MG VIAL IVP ONE (08:48)
[2017-10-03] MEDS: PEPCID 20 MG IV PREMIX* 20 MG/50 ML BAG IV SCH ×2 (10:51→21:11)
--- NOTE | 2017-10-03 12:21 | DR.H&P ---
H&P - History & Physical for Day of: H&P Date: 10/02/17 - Chief Complaint Chief Complaint: ruq pain, n/v, elevated blood pressure - Allergies Allergies/Adverse Reactions: Allergies Allergy/AdvReac Type Severity Reaction Status Date / Time No Known Drug Allergies Allergy Verified 05/30/17 03:50 - History of Present Illness History of Present Illness: ppatient is a 37-year-old white female was direct admit from Dr. Barrientos's office after presenting for an ER follow-up with complaints of right upper abdominal and epigastric pain. Patient's blood pressure was elevated in the office she has a history of hypertension but has been able to take all medications due to abdominal pain and vomiting. Patient states she was seen in the ER approximately 3-4 days prior to arrival and was prescribed a Prevacid pack for H pylori stomach infection. Patient states she had a gallbladder ultrasound, the original a couple weeks ago. Patient states she's had food intolerance waves of nausea vomiting and diarrhea. Plan to admit for further evaluation of abdominal pain, IV hydration pain and nausea control and hypertensive treatment. 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 - Social History Does patient currently use any type of tobacco product: No Have you used tobacco products in the last 12 months: Yes Type of Tobacco Use: None Alcohol Use: None Drug Use: None - Medications Home Medications: Amoxicillin [AMOXIL CAP 500 MG *] 2 cap PO BID 10/02/17 [History Confirmed 10/02] Cyclobenzaprine HCl [FLEXERIL 10 MG *] 1 tab PO DAILY PRN 10/02/17 [History Confirmed 10/02/17] Ibuprofen [Ibuprofen] 1 tab PO BID PRN 10/02/17 [History Confirmed 10/02/17] Losartan Potassium [LOSARTAN POTASSIUM 50 MG *] 1 tab PO DAILY 10/02/17 [ History Confirmed 10/02/17] Metoprolol Tartrate 1 tab PO BID 10/02/17 [History Confirmed 10/02/17] - Review of Systems Constitutional: Weakness Eyes: No Symptoms Reported ENT: No Symptoms Reported Respiratory: No Symptoms Reported Cardiovascular: No Symptoms Reported Gastrointestinal: Nausea, Vomiting, Abdominal Pain Genitourinary: No Symptoms Reported Musculoskeletal: Back Pain Skin: No Symptoms Reported Neurological: No Symptoms Reported - Physical Exam Vital Signs: Temperature 97.8 F Pulse Rate [Left Radial] 85 Respiratory Rate 18 Blood Pressure [Right Arm] 185/96 Blood Pressure [Left Arm] 167/95 Blood Pressure 207/119 O2 Sat by Pulse Oximetry 100 Oriented: Normal Eyes: Normal Ear: Normal Nose: Normal Throat: Normal Respiratory: RLL Diminished, LLL Diminished Cardiovascular: Normal : Normal Auscultation: Bowel Sounds: Increased Tenderness: RUQ, Epigastric Skin: Normal Musculoskeletal: Back:Lumbar Mood Description: Calm Speech Pattern: Clear - Assessment/Plan (1) RUQ abdominal pain Status: Acute Plan: admit, pain and nausea control, obtain bg us, HIDA scan. NPO, blood pressure control (2) Epigastric abdominal pain Status: Acute (3) Uncontrolled hypertension Status: Acute
[2017-10-03 15:38] VITALS: BMI 38.2
[2017-10-03] MEDS ORDERED: NS 1/2 1000 ML IV 1,000 ML IV ONE (16:54)
--- NOTE | 2017-10-03 17:51 | NM ---
HISTORY: Right upper quadrant pain, food intolerance, nausea vomiting Study: Nuclear medicine HIDA scan with ejection fraction Comparison: Ultrasound from same day Technique: Multiple scintigraphic images of the abdomen were obtained the intravenous administration of 5.6 mCi of technetium labeled Choletec. Following distention of the gallbladder with radiotracer, 8 oz of PO Ensure Plus was administered and an estimated gallbladder ejection fraction was calculated based. Findings: Homogeneous uptake of radiotracer is seen throughout the liver. The intrabiliary ductal system is ob served normally. The common hepatic and common bile duct appear grossly unremarkable with normal hasmukh iary-bowel transit. The gallbladder is observed to fill normally. There is a decreased gallbladder ejection fraction of 5.2% (normal > 35%). IMPRESSION: Decreased gallbladder ejection fraction, compatible with gallbladder dyskinesia. Reported By:
[2017-10-03] MEDS ORDERED: FLEXERIL TAB 10 MG PO PRN (21:03)
[2017-10-03] MEDS: CATAPRES TAB 0.1 MG PO PRN (21:12)
[2017-10-04] MEDS: CATAPRES TAB 0.1 MG PO PRN (05:56)
[2017-10-04] MEDS: NS 1/2 1000 ML IV 1,000 ML IV SCH (06:30)
[2017-10-04] MEDS ORDERED: COZAAR PO SCH (09:00)
[2017-10-04] MEDS ORDERED: PREVACID PO SCH (09:00)
[2017-10-04] MEDS ORDERED: LOPRESSOR TAB 25 MG PO SCH (09:00)
[2017-10-04] MEDS ORDERED: ZESTRIL TAB 20 MG PO SCH (09:00)
[2017-10-04 09:21] VITALS: BP 182/107
[2017-10-04] MEDS: PEPCID 20 MG IV PREMIX* 20 MG/50 ML BAG IV SCH (09:22)
[2017-10-04] MEDS ORDERED: ZESTRIL TAB 20 MG ONE (11:26)
== END 2017-10-04 15:40 | disposition home or self-care (01) | DRG 392 ==
LOC: OBS 10:30
PROVIDERS: ADMIT Internal Medicine; ATTEND Internal Medicine
DX: R10.11 Right upper quadrant pain (principal); R11.2 Nausea with vomiting, unspecified; I10 Essential (primary) hypertension; I51.7 Cardiomegaly; R10.13 Epigastric pain; R93.2 Abnormal findings on diagnostic imaging of liver and biliary tract
CPT/HCPCS: 36415; 71010; 76705; 78227; 80053; 82150; 83690; 85025; 93005; 93010; A4222; A9537; S0028; G0378; J0360

== ENCOUNTER 2017-10-08 08:53 | Day surgery (SDC) | payer OTHER ==
[~2017-10-08 08:53] MED LIST: D5 LR 1000 ML 1,000 ML IV ONE; MARCAINE 0.25% INJ ONE; XYLOCAINE 1% and EPINEPHRINE 1:100,000 ONE
[2017-10-08] MEDS ORDERED: FENTANYL INJ 250 mcg ONE (09:12)
[2017-10-08] MEDS ORDERED: DECADRON INJ ONE (09:12)
[2017-10-08] MEDS: ANCEF VIAL 1 GM ONE ×2 (09:17→09:25)
[2017-10-08 09:21] LABS: BASOPHILS # (AUTO) 0.1 X10^3/uL (0.0-0.1); BASOPHILS % (AUTO) 1.2 % (0.2-1.0); EOSINOPHILS # (AUTO) 0.2 x10^3/uL (0.0-0.2); EOSINOPHILS % (AUTO) 3.7 % (0.9-2.9); HEMOGLOBIN 12.1 g/dL (12.0-16.0); LYMPHOCYTES # (AUTO) 2.6 X10^3/uL (1.3-2.9); LYMPHOCYTES % (AUTO) 42.9 % (21.0-51.0); MEAN CORPUSCULAR HEMOGLOBIN 26.3 pg (27.0-34.0); MEAN CORPUSCULAR HGB CONC 33.7 g/dL (33.0-35.0); MEAN PLATELET VOLUME 9.5 fL (7.4-11.0); MONOCYTES # (AUTO) 0.8 x10^3/uL (0.3-0.8); MONOCYTES % (AUTO) 13.4 % (0.0-13.0); NEUTROPHILS # (AUTO) 2.3 x10^3/uL (2.2-4.8); NEUTROPHILS % (AUTO) 38.8 % (42.0-75.0); PLATELET COUNT 221 X10^3/uL (150.0-450.0); RED BLOOD COUNT 4.62 X10^6/uL (3.5-5.4); WHITE BLOOD COUNT 6.1 X10^3/uL (3.6-10.0)
[2017-10-08 09:33] LABS: ALANINE AMINOTRANSFERASE 28 Units/L (12-78); ALBUMIN 3.7 g/dL (3.4-5.0); ALKALINE PHOSPHATASE 47 Units/L (46-116); ASPARTATE AMINO TRANSFERASE 16 Units/L (15-37); BLOOD UREA NITROGEN 14 mg/dL (7-18); CALCIUM 8.9 mg/dL (8.5-10.1); CARBON DIOXIDE 27.6 mmol/L (21-32); CHLORIDE 105 mmol/L (98-107); SODIUM 141 mmol/L (136-145); TOTAL PROTEIN 7.8 g/dL (6.4-8.2); eGFR BLACK RACES > 60 (>60); eGFR NON BLACK RACES 60 (>60)
[2017-10-08] MEDS ORDERED: LTA KIT LIDOCAINE 4% ONE (09:54)
[2017-10-08] MEDS ORDERED: VERSED ONE (09:54)
[2017-10-08] MEDS ORDERED: SUPRANE IN ONE (09:54)
[2017-10-08] MEDS ORDERED: ROBINUL ONE (09:54)
[2017-10-08] MEDS ORDERED: DIPRIVAN VIAL ONE (09:54)
[2017-10-08] MEDS ORDERED: ZOFRAN INJ 4 MG VIAL ONE (09:54)
[2017-10-08] MEDS ORDERED: XYLOCAINE 2 % (PLAIN) ONE (09:54)
[2017-10-08] MEDS ORDERED: NEOSTIGMINE INJ ONE (09:54)
[2017-10-08] MEDS ORDERED: QUELICIN (OR ANECTINE) ONE (09:54)
[2017-10-08] MEDS ORDERED: NORCURON INJ 10 MG VIAL ONE (09:54)
[2017-10-08] MEDS ORDERED: LR 1000 ML IV 1,000 ML IV ONE (10:17)
[2017-10-08] MEDS ORDERED: NS IRRIGATION 3000 ML 3,000 ML IR ONE (10:32)
--- NOTE | 2017-10-08 11:11 | OR.GENERIC ---
Post-Op Note Generic - Post-Op Note Operative Report: Operative Report Date of Operation: October 08, 2017 Pre-Operative Diagnosis: Biliary dyskinesia. Post-Operative Diagnosis: Biliary dyskinesia. Procedure: Laparoscopic cholecystectomy. Surgeon: Garfield Whitt MD. Technologist Infectious Disease: Sergei Norman CRNA. Specimen: Gallbladder. Estimated blood loss: Minimal. Complications: None. Summary: The patient is a 37 year old female who presented with biliary dyskinesia. The patient was offered cholecystectomy. The risk and benefits of the procedure including difficulty with anesthesia, bleeding, infection, conversion to open procedure, bile leak, hernia formation, DVT, as well as PE were discussed with the patient. The patient understood these risks and requested the procedure. On October 08, 2017, the patient was brought to the operative theatre. A time out was performed verifying the patient and procedure. The patient received Ancef for pre-operative antibiosis. After satisfactory induction of general endotracheal anesthesia, the abdomen was prepped with Chloraprep and draped in the usual sterile fashion. The skin and subcutaneous tissue inferior to the umbilicus was anesthetized using local anesthetic. The skin was incised sharply. A 12 mm trocar was placed though the incision and into the peritoneal cavity using the Optiview technique. Carbon dioxide was infiltrated through this trocar to obtain a pneumoperitoneum of 15 mm Hg. A camera was placed through this trocar and swept in all directions. No injury was seen from entering the peritoneal cavity. A site was selected in the subxiphoid location for our 2nd trocar. The skin and fascia was anesthetized using local anesthetic. The skin was incised sharply. A 5 mm trocar was placed into the peritoneal cavity under direct visualization. In a similar manner, two additional 5 mm trocars were placed. The first was placed in the mid- clavicular line approximately 2 fingerbreadths inferior to the left costal margin and a second in the anterior axillary line approximately 2 fingerbreadths inferior to the left costal margin. The patient was placed in reverse Trendelenburg and rotated to the patients left. The gallbladder was grasped at the fundus and elevated cephalad and slightly lateral. Omental attachments were taken down using blunt dissection. The peritoneum on the medial and lateral aspects of the infundibulum of the gallbladder was scored using hook electrocautery. Using blunt dissection, the cystic artery and duct were isolated. The critical view of safety was obtained. Both of these structures were divided between endoclips. The gallbladder was dissected free using hook electrocautery. The gallbladder was placed in an endobag and removed through the umbilical trocar site without difficulty. The trocar and camera were placed back inside the abdomen. Our clips were noted in good position. At this point, the 5 mm trocars were removed under direct visualization. No bleeding was seen. The umbilical trocar was then removed and pneumoperitoneum released. The fascia at the umbilicus was closed using a 0 -Vicryl placed in a [id number] configuration. The skin edges at all incisions were re-approximated using inverted, interrupted 4-0 Monocryl sutures. Mastisol and Steri-strips were placed. Sterile dressings were placed. The patient was awakened and taken to the recovery room in stable condition. There were no complications. All counts were correct.
[2017-10-08] MEDS ORDERED: REGLAN INJ 10 MG VIAL IVP PRN (11:23)
[2017-10-08] MEDS ORDERED: PHENERGAN INJ 25 MG IVP PRN (11:23)
[2017-10-08] MEDS ORDERED: ZOFRAN INJ 4 MG VIAL IVP PRN (11:23)
[2017-10-08] MEDS ORDERED: DILAUDID INJ IVP PRN (11:23)
[2017-10-08] MEDS ORDERED: BENADRYL INJ 50 MG VIAL IVP PRN (11:23)
[2017-10-08] MEDS: DILAUDID INJ IVP ONE ×2 (11:35→11:40)
[2017-10-08] MEDS ORDERED: DILAUDID INJ ONE (11:37)
[2017-10-08 13:19] VITALS: BP 185/98
== END 2017-10-08 13:08 | disposition home or self-care (01) ==
LOC: SURG1 08:53
PROVIDERS: ATTEND Student in an Organized Health Care Education/Training Program
PROC: 0FT44ZZ Resection of Gallbladder, Percutaneous Endoscopic Approach (ICD-10-PCS; principal; 2017-10-08 09:15)
DX: K82.8 Other specified diseases of gallbladder (principal); K81.9 Cholecystitis, unspecified
CPT/HCPCS: 36415; 80053; 85025; A4216; S0020; J0330; J0690; J1100; J1170; J2001; J2250; J2405; J2710; J3010; J3490; J7120

== ENCOUNTER 2019-01-07 14:25 | Observation (INO) ==
[2019-01-07] MEDS ORDERED: PERCOCET TAB 5/325 MG PO PRN (14:28)
--- NOTE | 2019-01-07 14:32 | DR.H&P ---
H&P - History & Physical for Day of: H&P Date: 01/07/19 - Chief Complaint Chief Complaint: CP, SOB - History of Present Illness History of Present Illness: 38 BF DIRECT ADMIT FROM DR JAMES OFFICE WITH CO CHEST PRESSURE/PAIN, SOB. PT HAS PMH OF "ENLARGED HEART" HTN AND "CHF". PT REPORTS SHE HAS BEEN TAKING RX DIRECTED FOR BLOOD PRESSURE. PT CO FEEL LIKE SOMETHING ON CHEST AND CANT GET A DEEP BREATH. PT BP IN OFFICE 159/95. 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 - Social History Does patient currently use any type of tobacco product: No Have you used tobacco products in the last 12 months: No Type of Tobacco Use: None Does any household member use tobacco: No Alcohol Use: None Drug Use: None - Medications Home Medications: No Known Drug Allergies Allergy (Verified 05/30/17 03:50) - Review of Systems Constitutional: No Symptoms Reported Eyes: No Symptoms Reported ENT: No Symptoms Reported Respiratory: Shortness of Breath Cardiovascular: Chest Pain Gastrointestinal: No Symptoms Reported Genitourinary: No Symptoms Reported Skin: No Symptoms Reported Neurological: No Symptoms Reported - Physical Exam Vital Signs: Blood Pressure [Right Arm] 182/107 Blood Pressure [Left Arm] 167/95 Blood Pressure 185/98 Oriented: Normal Eyes: Normal Ear: Normal Nose: Normal Throat: Normal Respiratory: RLL Diminished, LLL Diminished Cardiovascular: Normal, Edema : Normal Auscultation: Bowel Sounds: Normal Palpation: Normal Tenderness: Normal Skin: Normal Musculoskeletal: Normal Psychiatric: Anxiety Affect: Anxious Speech Pattern: Clear, Appropriate - Assessment/Plan (1) Chest pain Status: Acute Plan: ADMIT, SERIAL CE AND EKG. CXR ON ADMISSION, D DIMER. CONTINUE METOPROLOL AND LOSARTAN. ASPIRIN, PRN SUPPLEMENTAL O2. CONTINUOUS CARDIAC MONITORING (2) Hypertensive cardiomegaly with heart failure Status: Acute (3) Uncontrolled hypertension Status: Acute - Allergies Allergies/Adverse Reactions: Allergies Allergy/AdvReac Type Severity Reaction Status Date / Time No Known Drug Allergies Allergy Verified 05/30/17 03:50
[2019-01-07 16:15] LABS: BASOPHILS # (AUTO) 0.1 X10^3/uL (0.0-0.1); BASOPHILS % (AUTO) 0.8 % (0.2-1.0); EOSINOPHILS # (AUTO) 0.2 x10^3/uL (0.0-0.2); EOSINOPHILS % (AUTO) 2.3 % (0.9-2.9); HEMATOCRIT 39.4 % (36.0-47.0); HEMOGLOBIN 13.2 g/dL (12.0-16.0); LYMPHOCYTES # (AUTO) 2.8 X10^3/uL (1.3-2.9); LYMPHOCYTES % (AUTO) 31.2 % (21.0-51.0); MEAN CORPUSCULAR HEMOGLOBIN 26.3 pg (27.0-34.0); MEAN CORPUSCULAR HGB CONC 33.5 g/dL (33.0-35.0); MEAN CORPUSCULAR VOLUME 78.6 fL (80.0-100.0); MEAN PLATELET VOLUME 9.5 fL (7.4-11.0); MONOCYTES # (AUTO) 0.6 x10^3/uL (0.3-0.8); MONOCYTES % (AUTO) 7.1 % (0.0-13.0); NEUTROPHILS # (AUTO) 5.2 x10^3/uL (2.2-4.8); NEUTROPHILS % (AUTO) 58.6 % (42.0-75.0); PLATELET COUNT 281 X10^3/uL (150.0-450.0); RED BLOOD COUNT 5.02 X10^6/uL (3.5-5.4); RED CELL DISTRIBUTION WIDTH 16.4 % (11.6-16.5); WHITE BLOOD COUNT 8.9 X10^3/uL (3.6-10.0)
--- NOTE | 2019-01-07 16:24 | RAD ---
HISTORY: Short of breath chest pain Study: One-view chest Comparison: One-view chest 10/02/2017. Technique: AP chest Findings: Soft tissues bony thorax are normal. Lung volumes are low. The heart is enlarged which is magnified by the low lung volumes with the diaphragm at the 6 interspace. Airway vascularity are normal. IMPRESSION: 1. Cardiomegaly low lung volumes but no acute cardiopulmonary abnormalities. No signs of CHF. Reported By:
[2019-01-07] MEDS: ASPIRIN PO SCH (16:25)
[2019-01-07] MEDS: LOPRESSOR TAB 25 MG PO SCH ×2 (16:25→20:44)
[2019-01-07 16:26] LABS: ALANINE AMINOTRANSFERASE 25 Units/L (12-78); ALKALINE PHOSPHATASE 65 Units/L (46-116); ASPARTATE AMINO TRANSFERASE 13 Units/L (15-37); BLOOD UREA NITROGEN 22 mg/dL (7-18); CALCIUM 9.4 mg/dL (8.5-10.1); CARBON DIOXIDE 30.8 mmol/L (21-32); CHLORIDE 103 mmol/L (98-107); CREATININE 1.42 mg/dL (0.55-1.02); MAGNESIUM 2.2 mg/dL (1.7-2.9); SODIUM 140 mmol/L (136-145); TOTAL PROTEIN 8.6 g/dL (6.4-8.2); eGFR NON BLACK RACES 44 (>60)
[2019-01-07] MEDS: COZAAR PO SCH (16:29)
[2019-01-07] MEDS: PROTONIX INJ 40 MG VIAL IVP SCH (16:32)
[2019-01-07 16:43] LABS: CKMB % 0.9 % (<4); CREATINE KINASE 116 Units/L (26-192); CREATINE KINASE MB < 1.0 ng/mL (0-4.0); TROPONIN I < 0.02 ng/mL (0-1.5)
[2019-01-07 16:51] VITALS: BMI 39.8
[2019-01-07] MEDS ORDERED: FLUVIRIN IM ONE (18:30)
[2019-01-07 20:42] LABS: CKMB % 1.1 % (<4); CREATINE KINASE 88 Units/L (26-192); CREATINE KINASE MB < 1.0 ng/mL (0-4.0); TROPONIN I < 0.02 ng/mL (0-1.5)
[2019-01-07 22:10] LABS: APPEARANCE,URINE HAZY (CLEAR); COLOR,URINE DARK YELLOW (YELLOW); GLUCOSE, URINE NEGATIVE (NEGATIVE); PROTEIN,URINE 2+ (NEGATIVE)
[2019-01-07 22:11] LABS: BILIRUBIN,URINE NEGATIVE (NEGATIVE); BLOOD/HEMOGLOBIN,URINE 4+ (NEGATIVE); KETONES,URINE NEGATIVE (NEGATIVE); LEUKOCYTE ESTERASE ,URINE NEGATIVE (NEGATIVE); NITRITES,URINE NEGATIVE (NEGATIVE); UROBILINOGEN,URINE NORMAL (NORMAL)
[2019-01-07 22:12] LABS: BACTERIA,URINE NEGATIVE /HPF (NEGATIVE); MUCUS,URINE RARE /HPF (NEGATIVE); SQUAMOUS EPITHELIAL CELL,UR MODERATE /HPF (NEGATIVE)
[2019-01-08 02:58] LABS: BASOPHILS % (AUTO) 0.7 % (0.2-1.0); EOSINOPHILS # (AUTO) 0.3 x10^3/uL (0.0-0.2); EOSINOPHILS % (AUTO) 3.8 % (0.9-2.9); HEMOGLOBIN 11.6 g/dL (12.0-16.0); LYMPHOCYTES # (AUTO) 2.6 X10^3/uL (1.3-2.9); LYMPHOCYTES % (AUTO) 37.7 % (21.0-51.0); MEAN CORPUSCULAR HEMOGLOBIN 26.5 pg (27.0-34.0); MEAN CORPUSCULAR HGB CONC 34.2 g/dL (33.0-35.0); MEAN CORPUSCULAR VOLUME 77.6 fL (80.0-100.0); MONOCYTES # (AUTO) 0.6 x10^3/uL (0.3-0.8); NEUTROPHILS # (AUTO) 3.3 x10^3/uL (2.2-4.8); NEUTROPHILS % (AUTO) 48.8 % (42.0-75.0); PLATELET COUNT 220 X10^3/uL (150.0-450.0); RED BLOOD COUNT 4.39 X10^6/uL (3.5-5.4); RED CELL DISTRIBUTION WIDTH 16.2 % (11.6-16.5); WHITE BLOOD COUNT 6.8 X10^3/uL (3.6-10.0)
[2019-01-08 03:10] LABS: ALBUMIN 3.1 g/dL (3.4-5.0); CALCIUM 8.6 mg/dL (8.5-10.1); CARBON DIOXIDE 28.9 mmol/L (21-32); CHOL/HDL RATIO 2.6 (0.0-5.0); COR CA(FOR HYPOALB) 9.3 mg/dL (8.5-10.1); CREATININE 1.33 mg/dL (0.55-1.02); TOTAL PROTEIN 6.7 g/dL (6.4-8.2)
[2019-01-08 03:18] LABS: CKMB % 1.5 % (<4); CREATINE KINASE 69 Units/L (26-192); CREATINE KINASE MB < 1.0 ng/mL (0-4.0); TROPONIN I < 0.02 ng/mL (0-1.5)
[2019-01-08] MEDS ORDERED: K-RIDER 10 MEQ/NS 100 ML 10 MEQ/100 ML BAG IV PRN (03:29)
[2019-01-08] MEDS ORDERED: KLOR-CON PO PRN (03:29)
[2019-01-08] MEDS ORDERED: MAGNESIUM SULFATE 1 GRAM/100 mL PREMIX 1 GM/100 ML BAG IV PRN (03:29)
[2019-01-08] MEDS ORDERED: POTASSIUM CHL 60 MEQ/NS 0.45% 500 ML IV PRN (03:29)
[2019-01-08] MEDS ORDERED: POTASSIUM CHLORIDE LIQ 20 MEQ UDC PO PRN (03:29)
[2019-01-08] MEDS ORDERED: MICRO K EXTEN CAP 10 MEQ PO PRN (03:29)
[2019-01-08] MEDS ORDERED: POTASSIUM CHL 40 MEQ/NS 0.45% 500 ML IV PRN (03:29)
[2019-01-08] MEDS ORDERED: K-DUR TAB 20 MEQ PO PRN (03:29)
[2019-01-08] MEDS: COZAAR PO SCH (09:30)
[2019-01-08] MEDS: LOPRESSOR TAB 25 MG PO SCH (09:30)
[2019-01-08] MEDS: ASPIRIN PO SCH (09:30)
[2019-01-08] MEDS: PROTONIX INJ 40 MG VIAL IVP SCH (09:30)
[2019-01-08 12:17] VITALS: BP 135/76
== END 2019-01-08 14:37 | disposition home or self-care (01) ==
LOC: MED/SURG
PROVIDERS: ADMIT Internal Medicine; ATTEND Internal Medicine
DX: R94.31 Abnormal electrocardiogram [ECG] [EKG]; R07.89 Other chest pain; I11.9 Hypertensive heart disease without heart failure; R06.02 Shortness of breath
CPT/HCPCS: 36415; 71010; 71045; 80053; 80061; 81001; 82550; 82553; 83735; 83880; 84484; 85025; 85378; 85610; 85730; 86663; 86664; 86665; 93005; 93306; 94760; 96374; A4216; A4222; C9113; G0378

== ENCOUNTER 2022-03-21 05:15 | Inpatient (IN) ==
--- NOTE | 2022-03-21 05:37 | DR.SOBA ---
HPI Time Seen Time Seen by Provider: 03/21/22 05:37 HPI Comment HPI Comment: PATIENT IS 41YR OLD FEMALE IN ER WITH INCREASING SOB, COUGH AND CHEST PAIN FOR SEVERAL DAYS. ONE HOUR PRIOR TO COMING TO ER, CHEST PAIN INTENSIFIED AND SOB GOT GOT WORSE. O2 SAT WAS IN THE 80S IN ER. DENIES HISTORY OF ASTHMA, COPD AND CHF. PATIENT SAID COUGH IS PRODUCTIVE AND CLEAR SPUTUM. SHE IS RUNNING ENRIQUE FEVER. Complaints Chief Complaint Doctors Comments: SOC, CHEST PAIN AND COUGH SEVERAL DAYS, WORSE TONIGHT. COVID-19 Coronavirus risk:travel/contact w/high risk person: No Has patient experienced Coronavirus symptoms: No Reviewed Nurses Notes Reviewed: Yes Source History Provided: Patient Mode of Arrival Mode of Arrival: Ambulatory Context Onset:: At Rest PE Risk Factors:: None History of:: None Prehospital Care:: None Modifying Factors Worsens:: Exertion Improves:: Rest Associated Signs and Symptoms Associated Signs and Symptoms: Fever, Cough and Nasal Congestion; denies Leg Swelling If Chest Pain Quality: Pressure like Location: Substernal If Cough Cough: Nonproductive and White PMH PMH Past Medical History: Hypertension Past Surgical History: Yes Surgical History: Cholecystectomy Social History Do you use any recreational Drugs:: No ROS Review of Systems Constitutional: See HPI, Fever, Weakness and Fatigue Eyes: No Symptoms Reported and See HPI ENTM: See HPI, Nose Discharge and Nose Congestion Respiratoy: See HPI, Productive Cough, Short of Breath and Wheezing Cardiovascular: See HPI, Chest Pain and Palpitations Gastrointestinal/Abdominal: See HPI and Nausea; negative Abdominal Pain, Diarrhea and Vomiting Genitourinary: No Symptoms Reported, See HPI, Dysuria and Frequency; negative Hematuria Neurological: See HPI, Headache and Weakness; negative Dizziness Musculoskeletal: No Symptoms Reported and See HPI Integumentary: No Symptoms Reported and See HPI Hematologic/Lymphatic: No Symptoms Reported and See HPI Endocrine: No Symptoms Reported and See HPI Psychiatric: No Symptoms Reported and See HPI All Other Systems: Reviewed and Negative PE Vital Signs Vitals: Temperature 100.3 F Pulse Rate 111 Respiratory Rate 22 Blood Pressure [Right Arm] 157/87 Blood Pressure [Left Arm] 160/97 Blood Pressure 180/85 O2 Sat by Pulse Oximetry 96 General Limitations: No Limitations General Appearance: Alert and In No Apparent Distress Head Head Exam: Normal Inspection, Atraumatic and Normocephalic Eyes Eye exam: Normal Appearance and PERRL; negative Scleral Icterus and Conjunctival Injection ENT ENT Exam: Normal Exam, Normal Oropharynx, Normal External Ear Exam and TM's Normal Bilaterally Neck Neck Exam: Normal Inspection and Trachea Midline; negative Tenderness Chest Chest Inspection: Normal Inspection and Symmetric Chest Wall Rise; negative Tenderness Respiratory Respiratory Exam: Normal Lung Sounds Bilat; negative Accessory Muscle Use, Chest Wall Tenderness and Respiratory Distress Respiratory Exam: Bilateral: Wheezing and Bilateral: Rhonchi and Lower: Wheezing and Lower: Rhonchi Cardiovascular Cardiovascular Exam: Regular Rate, Normal Rhythm, Tachycardia and Normal Heart Sounds Abdominal Exam Abdominal Exam: Normal Inspection, Normal Bowel Sounds and Soft; negative Tenderness Extremities Extremities Exam: Normal Inspection and Normal Capillary Refill Back Back Exam: Normal Inspection; negative (R) CVA Tenderness and (L) CVA Tenderness Neurologic Neurological Exam: Alert, Oriented X3 and CN II-XII Intact; negative Motor Sensory Deficit Psychiatric Psychiatric Exam: Normal Affect and Normal Mood Skin Skin Exam: Warm, Dry, Intact and Normal Color MDM Additional Information Obtained Additional Information Obtained From: Old Records and Family Differential Diagnosis Differential Diagnosis: CHF, Dysrhythmia, Hyponatremia, Mycardial Infarction, Pneumonia, Pneumothorax, Pulmonary embolism, Respiratory Failure, Sinusitis and URI COURSE Treatment Treatment: SEE ORDERS DONE WHILE PATIENT WAS IN ER. DUO NEB, SOLUMEDROL AND ZOSYN GIVEN PATIENT IN ER. LABS AND EKG DISCUSSED WITH PATIENT. Reevaluation 1st: Improved (WITH DUONEB.) Consultation Consultation Comments: PATIENT ACCEPTED FOR ADMISSION TO HOSPITAL BY DR. VERNON. Education/Counseling Education/Counseling: Patient Educated On: Diagnosis ROR Labs Reviewed Laboratory Results Reviewed?: Yes Result Diagrams: 03/21/22 05:48 03/21/22 05:48 Laboratory: WBC 14.2 X10^3/uL (3.6-10.0) H 03/21/22 05:48 RBC 4.56 X10^6/uL (3.5-5.4) 03/21/22 05:48 Hgb 11.4 g/dL (12.0-16.0) L 03/21/22 05:48 Hct 34.2 % (36.0-47.0) L 03/21/22 05:48 MCV 75.0 fL (80.0-100.0) L 03/21/22 05:48 MCH 25.0 pg (27.0-34.0) L 03/21/22 05:48 MCHC 33.3 g/dL (33.0-35.0) 03/21/22 05:48 RDW 17.5 % (11.6-16.5) H 03/21/22 05:48 Plt Count 228 X10^3/uL (150.0-450.0) 03/21/22 05:48 MPV 9.1 fL (7.4-11.0) 03/21/22 05:48 Neut % (Auto) 79.6 % (42.0-75.0) H 03/21/22 05:48 Lymph % (Auto) 11.6 % (21.0-51.0) L 03/21/22 05:48 [place] % (Auto) 6.9 % (0.0-13.0) 03/21/22 05:48 Eos % (Auto) 1.5 % (0.9-2.9) 03/21/22 05:48 Baso % (Auto) 0.4 % (0.2-1.0) 03/21/22 05:48 Neut # (Auto) 11.3 x10^3/uL (2.2-4.8) H 03/21/22 05:48 Lymph # (Auto) 1.7 X10^3/uL (1.3-2.9) 03/21/22 05:48 [place] # (Auto) 1.0 x10^3/uL (0.3-0.8) H 03/21/22 05:48 Eos # (Auto) 0.2 x10^3/uL (0.0-0.2) 03/21/22 05:48 Baso # (Auto) 0.1 X10^3/uL (0.0-0.1) 03/21/22 05:48 Absolute Nucleated RBC 0.1 /100WBC 03/21/22 05:48 PT 15.1 SECONDS (11.8-14.3) 03/21/22 05:48 INR Target Range - 03/21/22 05:48 INR 1.23 (0.8-1.3) 03/21/22 05:48 APTT 24.0 SECONDS (22.9-36.5) 03/21/22 05:48 PTT Comment - 03/21/22 05:48 D-Dimer 1.74 ug/ml (0.0-0.57) H* 03/21/22 05:48 Sample Site Rr 03/21/22 05:37 ABG pH 7.470 (7.35-7.45) H 03/21/22 05:37 ABG pCO2 33.0 mmHg (35.0-45.0) L 03/21/22 05:37 ABG pO2 47.0 mmHg (80.0-100.0) L* 03/21/22 05:37 ABG HCO3 24.0 mmol/L (22-26) 03/21/22 05:37 ABG O2 Saturation 86.0 % (90-100) L 03/21/22 05:37 ABG Base Excess 0.8 mmol/L (-2.0-2.0) 03/21/22 05:37 Gabe Test Pos 03/21/22 05:37 A-a Gradient 61.0 mmHg 03/21/22 05:37 FiO2 21.0 03/21/22 05:37 Blood Gas Comments Bettie well sw 03/21/22 05:37 Sodium 137 mmol/L (136-145) 03/21/22 05:48 Corrected Sodium TNP 03/21/22 05:48 Potassium 3.8 mmol/L (3.5-5.1) 03/21/22 05:48 Chloride 103 mmol/L (98-107) 03/21/22 05:48 Carbon Dioxide 24.7 mmol/L (21-32) 03/21/22 05:48 BUN 18 mg/dL (7-18) 03/21/22 05:48 Creatinine 1.11 mg/dL (0.55-1.02) H 03/21/22 05:48 Est GFR (MDRD) Af Amer > 60 (>60) 03/21/22 05:48 Est GFR (MDRD) Non-Af 58 (>60) L 03/21/22 05:48 Glucose 101 mg/dL (65-99) H 03/21/22 05:48 Lactic Acid 1.0 mmol/L (0.4-2.0) 03/21/22 05:48 Calcium 8.6 mg/dL (8.5-10.1) 03/21/22 05:48 Corrected Calcium TNP 03/21/22 05:48 Ferritin 26 ng/mL (8-252) 03/21/22 05:48 Total Bilirubin 0.70 mg/dL (0.2-1.0) 03/21/22 05:48 AST 20 Units/L (15-37) 03/21/22 05:48 ALT 32 Units/L (12-78) 03/21/22 05:48 Alkaline Phosphatase 67 Units/L (46-116) 03/21/22 05:48 Creatine Kinase 91 Units/L (26-192) 03/21/22 05:48 CK-MB (CK-2) < 1.0 ng/mL (0-4.0) 03/21/22 05:48 CK/CKMB % Calc 1.1 % (<4) 03/21/22 05:48 Troponin I High Sens 13.9 ng/L (4.0-60.0) 03/21/22 05:48 C-Reactive Protein 32.60 mg/L (0-3.0) H 03/21/22 05:48 B-Natriuretic Peptide 223 pg/mL (0-79) H 03/21/22 05:48 Total Protein 7.3 g/dL (6.4-8.2) 03/21/22 05:48 Albumin 3.4 g/dL (3.4-5.0) 03/21/22 05:48 Globulin 3.9 g/dL (2.5-4.5) 03/21/22 05:48 Albumin/Globulin Ratio 0.9 Ratio (1.1-2.1) L 03/21/22 05:48 Specimen Type Clean catch urine 03/21/22 07:45 Urine Color Yellow (YELLOW) 03/21/22 07:45 Urine Appearance Clear (CLEAR) 03/21/22 07:45 Urine pH 6.0 (5.0 - 8.0) 03/21/22 07:45 Ur Specific [place] 1.010 (1.000-1.030) 03/21/22 07:45 Urine Protein 1+ (NEGATIVE) 03/21/22 07:45 Urine Glucose (UA) Negative (NEGATIVE) 03/21/22 07:45 Urine Ketones Negative (NEGATIVE) 03/21/22 07:45 Urine Blood 1+ (NEGATIVE) 03/21/22 07:45 Urine Nitrite Negative (NEGATIVE) 03/21/22 07:45 Urine Bilirubin Negative (NEGATIVE) 03/21/22 07:45 Urine Urobilinogen 1+ (NORMAL) 03/21/22 07:45 Ur Leukocyte Esterase 1+ (NEGATIVE) 03/21/22 07:45 Urine RBC 0-2 /HPF (0-3) 03/21/22 07:45 Urine WBC 0-2 /HPF (0-5) 03/21/22 07:45 Ur Squamous Epith Cells Numerous /HPF (NEGATIVE) 03/21/22 07:45 Urine Bacteria 1+ /HPF (NEGATIVE) 03/21/22 07:45 Ur Culture Indicated? No/not indicated 03/21/22 07:45 SARS-CoV-2 (PCR) Negative (NEGATIVE) 03/21/22 00:44 Influenza Type A (PCR) Negative (NEGATIVE) 03/21/22 00:44 Influenza Type B (PCR) Negative (NEGATIVE) 03/21/22 00:44 RSV (PCR) Negative (NEGATIVE) 03/21/22 00:44 S. pyogenes (TEM-PCR) Not detected (NOT DETECT) 03/21/22 00:44 XRAY XRAY Interpreted by: Radiologist (REPORT NOTED .) and Self EKG Rate: 115 [place]: Normal Rhythm: ST Block: None Hypertrophy: LAE ST: Normal Opioid Opioid Risk Tool Age (Matthew box if 16-45): Yes History of Preadolescent Sexual Abuse: No Total: 1 Total Score Risk Category: Low Risk Copyright: Tremayne MATHUR predicting aberrant behaviors Diagnosis Discharge Problem: Community acquired pneumonia, bilateral, Chest pain, Hypoxia Instructions Forms: Precautions for COVID19 [facility] Patient Portal Social Distancing
[2022-03-21 05:40] VITALS: BMI 38.2
[2022-03-21] MEDS ORDERED: SOLU-Medrol 125 MG VIAL IVP ONE (05:43)
[2022-03-21] MEDS ORDERED: DUONEB 0.5 MG/3 MG (3 mL) NEB ONE ×2 (05:43→05:48)
[2022-03-21] MEDS ORDERED: SOLU-Medrol 125 MG VIAL ONE (05:45)
[2022-03-21 06:03] LABS: BASOPHILS # (AUTO) 0.1 X10^3/uL (0.0-0.1); BASOPHILS % (AUTO) 0.4 % (0.2-1.0); EOSINOPHILS # (AUTO) 0.2 x10^3/uL (0.0-0.2); EOSINOPHILS % (AUTO) 1.5 % (0.9-2.9); HEMATOCRIT 34.2 % (36.0-47.0); HEMOGLOBIN 11.4 g/dL (12.0-16.0); LYMPHOCYTES # (AUTO) 1.7 X10^3/uL (1.3-2.9); LYMPHOCYTES % (AUTO) 11.6 % (21.0-51.0); MEAN CORPUSCULAR HGB CONC 33.3 g/dL (33.0-35.0); MEAN PLATELET VOLUME 9.1 fL (7.4-11.0); MONOCYTES % (AUTO) 6.9 % (0.0-13.0); NEUTROPHILS # (AUTO) 11.3 x10^3/uL (2.2-4.8); NEUTROPHILS % (AUTO) 79.6 % (42.0-75.0); RED BLOOD COUNT 4.56 X10^6/uL (3.5-5.4); RED CELL DISTRIBUTION WIDTH 17.5 % (11.6-16.5); WHITE BLOOD COUNT 14.2 X10^3/uL (3.6-10.0)
[2022-03-21] MEDS ORDERED: ZOSYN VIAL 3.375 GRAMS 3.375 G in NS 100 ML IV 100 ML IV ONE (06:04)
--- NOTE | 2022-03-21 06:04 | RAD ---
HISTORYPT C/O SOB, COUGH, VOMITING, FATIGUE HTN SX: DARIEL, TUBALSTUDYCHEST, 1 [id number] trachea is midline. The cardiac silhouette is mildly enlarged.. Bilateral interstitial infiltrates or edema new from prior study. No pleural effusion or pneumothorax.. The bony thorax is unremarkable.IMPRESSIONMild cardiomegaly.Bilateral parenchymal opacities consistent with infiltrate or edema new from previous 03/07/2021..Electronically signed by: Samuel Graff (March 21, 2022 06:03:16)
[2022-03-21 06:06] LABS: ABG BASE EXCESS 0.8 mmol/L (-2.0-2.0)
[2022-03-21 06:07] LABS: ABG ALLEN TEST POS
[2022-03-21] MEDS ORDERED: NS 1,000 ML IV 1,000 ML ONE (06:20)
[2022-03-21] MEDS ORDERED: NS 100 ML IV 100 ML ONE ×2 (06:20→07:09)
[2022-03-21] MEDS ORDERED: ZOSYN VIAL 3.375 GRAMS IV ONE (06:20)
[2022-03-21 06:22] LABS: ALANINE AMINOTRANSFERASE 32 Units/L (12-78); ALBUMIN 3.4 g/dL (3.4-5.0); ALKALINE PHOSPHATASE 67 Units/L (46-116); ASPARTATE AMINO TRANSFERASE 20 Units/L (15-37); BLOOD UREA NITROGEN 18 mg/dL (7-18); CALCIUM 8.6 mg/dL (8.5-10.1); CARBON DIOXIDE 24.7 mmol/L (21-32); CHLORIDE 103 mmol/L (98-107); CKMB % 1.1 % (<4); CREATINE KINASE 91 Units/L (26-192); CREATINE KINASE MB < 1.0 ng/mL (0-4.0); CREATININE 1.11 mg/dL (0.55-1.02); SODIUM 137 mmol/L (136-145); TOTAL PROTEIN 7.3 g/dL (6.4-8.2); eGFR NON BLACK RACES 58 (>60)
[2022-03-21 06:23] LABS: STREP A BY PCR NOT DETECTED (NOT DETECT)
[2022-03-21] MEDS: NS 1,000 ML IV 1,000 ML IV SCH (06:36)
[2022-03-21 07:59] LABS: BILIRUBIN,URINE NEGATIVE (NEGATIVE); BLOOD/HEMOGLOBIN,URINE 1+ (NEGATIVE); GLUCOSE, URINE NEGATIVE (NEGATIVE); KETONES,URINE NEGATIVE (NEGATIVE); LEUKOCYTE ESTERASE ,URINE 1+ (NEGATIVE); NITRITES,URINE NEGATIVE (NEGATIVE); PROTEIN,URINE 1+ (NEGATIVE); UROBILINOGEN,URINE 1+ (NORMAL)
--- NOTE | 2022-03-21 08:08 | CT ---
HISTORYShortness of breath, pneumonia, elevated D-dimerSTUDYCTA chest with contrast for pulmonary embolusTechnique: Axial post-contrast images with coronal, sagittal, and 3 dimensional maximum intensity projection images obtained and evaluated. Dose reduction procedures were used with mA/kv adjusted for body size.COMPARISONNoneFINDINGSThere is no evidence for acute pulmonary thromboembolic disease. Examination of the mediastinum demonstrated no evidence for mediastinal masses, enlarged mediastinal or enlarged hilar adenopathy or significant aortic abnormality. The heart is enlarged. No pleural effusions are identified. No chest wall or axillary abnormality is identified. Those portions of the upper abdominal organs visualized were within normal limits to the limitations of early arterial injection timing. Examination of the lung pa demonstrated diffuse bilateral upper and lower lobe but more predominantly lower lobe confluent alveolar infiltrates and areas of consolidation most consistent with severe multifocal pneumonia. No definite nodules, masses, peribronchial thickening, or bronchiectasis identified.IMPRESSIONNo evidence for acute pulmonary thromboembolic diseaseDiffuse bilateral severe confluent alveolar infiltrate involving all lung pa but more prominent in the lower lobes and most consistent with severe multifocal pneumonia.Cardiomegaly without congestive heart failureElectronically signed by: ARASH PAYNE (March 21, 2022 08:07:18)
[2022-03-21 08:09] LABS: APPEARANCE,URINE CLEAR (CLEAR); BACTERIA,URINE 1+ /HPF (NEGATIVE); COLOR,URINE YELLOW (YELLOW); RBC,URINE 0-2 /HPF (0-3); SQUAMOUS EPITHELIAL CELL,UR NUMEROUS /HPF (NEGATIVE)
[2022-03-21] MEDS ORDERED: NORVASC TAB 5 MG PO ONE (08:10)
[2022-03-21] MEDS ORDERED: NORVASC TAB 5 MG ONE (08:15)
[2022-03-21] MEDS: ZOSYN VIAL 3.375 GRAMS 3.375 G in NS 100 ML IV 100 ML IV SCH ×3 (08:19→22:19)
[2022-03-21] MEDS ORDERED: ZITHROMAX INJ 500 MG VIAL IV ONE (08:27)
[2022-03-21] MEDS ORDERED: D5W 250 ML IV 250 ML IV ONE (08:27)
--- NOTE | 2022-03-21 08:27 | DR.SOBA ---
HPI Time Seen Time Seen by Provider: 03/21/22 05:37 Primary Care Physician Primary Care Physician: LETTY HPI Comment HPI Comment: DOCUMENTATION ON PATIENT HAS BEING COMPLETED AND SIGN. Complaints Chief Complaint:: PT STATES ABOUT AN HOUR AGO SHE STARTED FEELING LIKE SHE COULDN'T HARDLY BREATH. STATES IT FEELS LIKE SOMETHING IS SITTING MID STERNUM. STATES IS COUGHING UP CLEAR STUFF. STATES SHE HAS BEEN VOMITING TONIGHT. PT REPORTS LOW ENERGY. COVID-19 Coronavirus risk:travel/contact w/high risk person: No Has patient experienced Coronavirus symptoms: No Coronavirus symptoms experienced: Fever, Coughing and Shortness of Breath Source History Provided: Patient Mode of Arrival Mode of Arrival: Ambulatory Timing Onset of Chief Complaint: 03/20/22 If Chest Pain Location: Substernal PMH PMH Past Medical History: Yes Past Medical History: Hypertension Past Surgical History: Yes Surgical History: Cholecystectomy Past Surgical History Comment: TUBAL Family History History of Family Medical Conditions: No Social History Does patient currently use any type of tobacco product: No Have you used tobacco products in the last 12 months: No Type of Tobacco Use: None Does any household member use tobacco: No Alcohol Use: Rarely Do you use any recreational Drugs:: No Lives With: Spouse Lives Where: Home Travel Risk Coronavirus risk:travel/contact w/high risk person: No Has patient experienced Coronavirus symptoms: No Coronavirus symptoms experienced: Fever, Coughing and Shortness of Breath Infectious screening Have you traveled outside the country in the last 6 months?: No Isolation: Respiratory PE Vital Signs Vitals: Temperature 100.3 F Pulse Rate 109 Respiratory Rate 22 Blood Pressure [Right Arm] 157/87 Blood Pressure [Left Arm] 160/97 Blood Pressure 168/93 O2 Sat by Pulse Oximetry 96 COURSE Treatment Treatment: PATIENT SIGN OUT TO DR. AYALA AT 08:00am today, 03/21/2922. ROR Labs Reviewed Result Diagrams: 03/21/22 05:48 03/21/22 05:48 Laboratory: WBC 14.2 X10^3/uL (3.6-10.0) H 03/21/22 05:48 RBC 4.56 X10^6/uL (3.5-5.4) 03/21/22 05:48 Hgb 11.4 g/dL (12.0-16.0) L 03/21/22 05:48 Hct 34.2 % (36.0-47.0) L 03/21/22 05:48 MCV 75.0 fL (80.0-100.0) L 03/21/22 05:48 MCH 25.0 pg (27.0-34.0) L 03/21/22 05:48 MCHC 33.3 g/dL (33.0-35.0) 03/21/22 05:48 RDW 17.5 % (11.6-16.5) H 03/21/22 05:48 Plt Count 228 X10^3/uL (150.0-450.0) 03/21/22 05:48 MPV 9.1 fL (7.4-11.0) 03/21/22 05:48 Neut % (Auto) 79.6 % (42.0-75.0) H 03/21/22 05:48 Lymph % (Auto) 11.6 % (21.0-51.0) L 03/21/22 05:48 [place] % (Auto) 6.9 % (0.0-13.0) 03/21/22 05:48 Eos % (Auto) 1.5 % (0.9-2.9) 03/21/22 05:48 Baso % (Auto) 0.4 % (0.2-1.0) 03/21/22 05:48 Neut # (Auto) 11.3 x10^3/uL (2.2-4.8) H 03/21/22 05:48 Lymph # (Auto) 1.7 X10^3/uL (1.3-2.9) 03/21/22 05:48 [place] # (Auto) 1.0 x10^3/uL (0.3-0.8) H 03/21/22 05:48 Eos # (Auto) 0.2 x10^3/uL (0.0-0.2) 03/21/22 05:48 Baso # (Auto) 0.1 X10^3/uL (0.0-0.1) 03/21/22 05:48 Absolute Nucleated RBC 0.1 /100WBC 03/21/22 05:48 PT 15.1 SECONDS (11.8-14.3) 03/21/22 05:48 INR Target Range - 03/21/22 05:48 INR 1.23 (0.8-1.3) 03/21/22 05:48 APTT 24.0 SECONDS (22.9-36.5) 03/21/22 05:48 PTT Comment - 03/21/22 05:48 D-Dimer 1.74 ug/ml (0.0-0.57) H* 03/21/22 05:48 Sample Site Rr 03/21/22 05:37 ABG pH 7.470 (7.35-7.45) H 03/21/22 05:37 ABG pCO2 33.0 mmHg (35.0-45.0) L 03/21/22 05:37 ABG pO2 47.0 mmHg (80.0-100.0) L* 03/21/22 05:37 ABG HCO3 24.0 mmol/L (22-26) 03/21/22 05:37 ABG O2 Saturation 86.0 % (90-100) L 03/21/22 05:37 ABG Base Excess 0.8 mmol/L (-2.0-2.0) 03/21/22 05:37 Gabe Test Pos 03/21/22 05:37 A-a Gradient 61.0 mmHg 03/21/22 05:37 FiO2 21.0 03/21/22 05:37 Blood Gas Comments Bettie well sw 03/21/22 05:37 Sodium 137 mmol/L (136-145) 03/21/22 05:48 Corrected Sodium TNP 03/21/22 05:48 Potassium 3.8 mmol/L (3.5-5.1) 03/21/22 05:48 Chloride 103 mmol/L (98-107) 03/21/22 05:48 Carbon Dioxide 24.7 mmol/L (21-32) 03/21/22 05:48 BUN 18 mg/dL (7-18) 03/21/22 05:48 Creatinine 1.11 mg/dL (0.55-1.02) H 03/21/22 05:48 Est GFR (MDRD) Af Amer > 60 (>60) 03/21/22 05:48 Est GFR (MDRD) Non-Af 58 (>60) L 03/21/22 05:48 Glucose 101 mg/dL (65-99) H 03/21/22 05:48 Lactic Acid 1.0 mmol/L (0.4-2.0) 03/21/22 05:48 Calcium 8.6 mg/dL (8.5-10.1) 03/21/22 05:48 Corrected Calcium TNP 03/21/22 05:48 Ferritin 26 ng/mL (8-252) 03/21/22 05:48 Total Bilirubin 0.70 mg/dL (0.2-1.0) 03/21/22 05:48 AST 20 Units/L (15-37) 03/21/22 05:48 ALT 32 Units/L (12-78) 03/21/22 05:48 Alkaline Phosphatase 67 Units/L (46-116) 03/21/22 05:48 Creatine Kinase 91 Units/L (26-192) 03/21/22 05:48 CK-MB (CK-2) < 1.0 ng/mL (0-4.0) 03/21/22 05:48 CK/CKMB % Calc 1.1 % (<4) 03/21/22 05:48 Troponin I High Sens 13.9 ng/L (4.0-60.0) 03/21/22 05:48 C-Reactive Protein 32.60 mg/L (0-3.0) H 03/21/22 05:48 B-Natriuretic Peptide 223 pg/mL (0-79) H 03/21/22 05:48 Total Protein 7.3 g/dL (6.4-8.2) 03/21/22 05:48 Albumin 3.4 g/dL (3.4-5.0) 03/21/22 05:48 Globulin 3.9 g/dL (2.5-4.5) 03/21/22 05:48 Albumin/Globulin Ratio 0.9 Ratio (1.1-2.1) L 03/21/22 05:48 Specimen Type Clean catch urine 03/21/22 07:45 Urine Color Yellow (YELLOW) 03/21/22 07:45 Urine Appearance Clear (CLEAR) 03/21/22 07:45 Urine pH 6.0 (5.0 - 8.0) 03/21/22 07:45 Ur Specific [place] 1.010 (1.000-1.030) 03/21/22 07:45 Urine Protein 1+ (NEGATIVE) 03/21/22 07:45 Urine Glucose (UA) Negative (NEGATIVE) 03/21/22 07:45 Urine Ketones Negative (NEGATIVE) 03/21/22 07:45 Urine Blood 1+ (NEGATIVE) 03/21/22 07:45 Urine Nitrite Negative (NEGATIVE) 03/21/22 07:45 Urine Bilirubin Negative (NEGATIVE) 03/21/22 07:45 Urine Urobilinogen 1+ (NORMAL) 03/21/22 07:45 Ur Leukocyte Esterase 1+ (NEGATIVE) 03/21/22 07:45 Urine RBC 0-2 /HPF (0-3) 03/21/22 07:45 Urine WBC 0-2 /HPF (0-5) 03/21/22 07:45 Ur Squamous Epith Cells Numerous /HPF (NEGATIVE) 03/21/22 07:45 Urine Bacteria 1+ /HPF (NEGATIVE) 03/21/22 07:45 Ur Culture Indicated? No/not indicated 03/21/22 07:45 SARS-CoV-2 (PCR) Negative (NEGATIVE) 03/21/22 00:44 Influenza Type A (PCR) Negative (NEGATIVE) 03/21/22 00:44 Influenza Type B (PCR) Negative (NEGATIVE) 03/21/22 00:44 RSV (PCR) Negative (NEGATIVE) 03/21/22 00:44 S. pyogenes (TEM-PCR) Not detected (NOT DETECT) 03/21/22 00:44 Opioid Opioid Risk Tool Age (Matthew box if 16-45): Yes History of Preadolescent Sexual Abuse: No Total: 1 Total Score Risk Category: Low Risk Copyright: Tremayne MATHUR predicting aberrant behaviors Diagnosis Discharge Problem: Community acquired pneumonia, bilateral, Chest pain, Hypoxia Instructions Forms: Precautions for COVID19 [facility] Patient Portal Social Distancing
[2022-03-21] MEDS: ZITHROMAX INJ 500 MG VIAL 500 MG in D5W 250 ML IV 250 ML IV SCH ×2 (08:31→09:11)
[2022-03-21] MEDS ORDERED: TUSSIONEX PENNKINETIC SUSP PO PRN (09:07)
[2022-03-21 09:15] LABS: CKMB % 1.1 % (<4); CREATINE KINASE 94 Units/L (26-192); CREATINE KINASE MB < 1.0 ng/mL (0-4.0)
[2022-03-21] MEDS: PULMICORT NEB TX 0.5 MG NEB SCH ×2 (09:25→21:15)
[2022-03-21] MEDS: DUONEB 0.5 MG/3 MG (3 mL) NEB SCH ×4 (09:25→21:15)
[2022-03-21] MEDS: ROBITUSSIN DM PO SCH ×3 (10:30→20:47)
[2022-03-21] MEDS: VSL#3 PO SCH (10:30)
[2022-03-21 12:05] LABS: CKMB % 1.2 % (<4); CREATINE KINASE 87 Units/L (26-192); CREATINE KINASE MB < 1.0 ng/mL (0-4.0)
--- NOTE | 2022-03-21 13:59 | DR.H&P ---
H&P History & Physical for Day of: H&P Date: 03/21/22 Chief Complaint Chief Complaint: Fever, chills Weakness, Shortness of breath Allergies Allergies Allergy/AdvReac Type Severity Reaction Status Date / Time No Known Drug Allergies Allergy Verified 05/30/17 03:50 History of Present Illness History of Present Illness: Pt is a 41 year old female past medical history of hypertension, presenting with shortness of breath, fever, chills, and weakness that she has been experiencing for the past 3 weeks that has been worsening. She presenting to ED with dyspnea and acute hypoxia. Labs/imaging: Wbc 14.2, Hgb 11.4, Plt 228, Na 137, K 3.8, Creatinine 1.11, Glucose 101, D-dimer 1.74, ABG: pH 7.47, pCO2 33, pO2 47, HCO3 24, 86%, on RA. CRP 32, UA negative, COVID/Flu /RSV/Strep negative, Sputum cultures unable to obtain yet, Blood cultures pending, CXR: Mild cardiomegaly. Bilateral parenchymal opacities consistent with infiltrate or edema new from previous 03/07/2021. CTA chest was obtained that revealed: No evidence for acute pulmonary thromboembolic disease. Diffuse bilateral severe confluent alveolar infiltrate involving all lung pa but more prominent in the lower lobes and most consistent with severe multifocal pneumonia. Pt was started on Zosyn and supplemental oxygen and bronchodilators in the ED. Will add azithromycin. Continue scheduled bronchodilators. Wean/titrate supplemental oxygen as tolerated, currently requiring between 2-3 L. Continue to closely monitor and follow up labs/imaging in the morning. Past Medical History Past Medical History: Hypertension Past Surgical History Surgical History: Cholecystectomy Social History Does patient currently use any type of tobacco product: No Have you used tobacco products in the last 12 months: No Type of Tobacco Use: None Does any household member use tobacco: No Alcohol Use: Rarely Drug Use: None Medications Home Medications: No Known Drug Allergies Allergy (Verified 05/30/17 03:50) Labs Result Diagrams: 03/22/22 04:00 03/22/22 04:00 Labs: Laboratory WBC 14.2 X10^3/uL (3.6-10.0) H 03/21/22 05:48 RBC 4.56 X10^6/uL (3.5-5.4) 03/21/22 05:48 Hgb 11.4 g/dL (12.0-16.0) L 03/21/22 05:48 Hct 34.2 % (36.0-47.0) L 03/21/22 05:48 MCV 75.0 fL (80.0-100.0) L 03/21/22 05:48 MCH 25.0 pg (27.0-34.0) L 03/21/22 05:48 MCHC 33.3 g/dL (33.0-35.0) 03/21/22 05:48 RDW 17.5 % (11.6-16.5) H 03/21/22 05:48 Plt Count 228 X10^3/uL (150.0-450.0) 03/21/22 05:48 MPV 9.1 fL (7.4-11.0) 03/21/22 05:48 Neut % (Auto) 79.6 % (42.0-75.0) H 03/21/22 05:48 Lymph % (Auto) 11.6 % (21.0-51.0) L 03/21/22 05:48 [place] % (Auto) 6.9 % (0.0-13.0) 03/21/22 05:48 Eos % (Auto) 1.5 % (0.9-2.9) 03/21/22 05:48 Baso % (Auto) 0.4 % (0.2-1.0) 03/21/22 05:48 Neut # (Auto) 11.3 x10^3/uL (2.2-4.8) H 03/21/22 05:48 Lymph # (Auto) 1.7 X10^3/uL (1.3-2.9) 03/21/22 05:48 [place] # (Auto) 1.0 x10^3/uL (0.3-0.8) H 03/21/22 05:48 Eos # (Auto) 0.2 x10^3/uL (0.0-0.2) 03/21/22 05:48 Baso # (Auto) 0.1 X10^3/uL (0.0-0.1) 03/21/22 05:48 Absolute Nucleated RBC 0.1 /100WBC 03/21/22 05:48 PT 15.1 SECONDS (11.8-14.3) 03/21/22 05:48 INR Target Range - 03/21/22 05:48 INR 1.23 (0.8-1.3) 03/21/22 05:48 APTT 24.0 SECONDS (22.9-36.5) 03/21/22 05:48 PTT Comment - 03/21/22 05:48 D-Dimer 1.74 ug/ml (0.0-0.57) H* 03/21/22 05:48 Sample Site Rr 03/21/22 05:37 ABG pH 7.470 (7.35-7.45) H 03/21/22 05:37 ABG pCO2 33.0 mmHg (35.0-45.0) L 03/21/22 05:37 ABG pO2 47.0 mmHg (80.0-100.0) L* 03/21/22 05:37 ABG HCO3 24.0 mmol/L (22-26) 03/21/22 05:37 ABG O2 Saturation 86.0 % (90-100) L 03/21/22 05:37 ABG Base Excess 0.8 mmol/L (-2.0-2.0) 03/21/22 05:37 Gabe Test Pos 03/21/22 05:37 A-a Gradient 61.0 mmHg 03/21/22 05:37 FiO2 21.0 03/21/22 05:37 Blood Gas Comments Bettie well sw 03/21/22 05:37 Sodium 137 mmol/L (136-145) 03/21/22 05:48 Corrected Sodium TNP 03/21/22 05:48 Potassium 3.8 mmol/L (3.5-5.1) 03/21/22 05:48 Chloride 103 mmol/L (98-107) 03/21/22 05:48 Carbon Dioxide 24.7 mmol/L (21-32) 03/21/22 05:48 BUN 18 mg/dL (7-18) 03/21/22 05:48 Creatinine 1.11 mg/dL (0.55-1.02) H 03/21/22 05:48 Est GFR (MDRD) Af Amer > 60 (>60) 03/21/22 05:48 Est GFR (MDRD) Non-Af 58 (>60) L 03/21/22 05:48 Glucose 101 mg/dL (65-99) H 03/21/22 05:48 Lactic Acid 1.0 mmol/L (0.4-2.0) 03/21/22 05:48 Calcium 8.6 mg/dL (8.5-10.1) 03/21/22 05:48 Corrected Calcium TNP 03/21/22 05:48 Ferritin 26 ng/mL (8-252) 03/21/22 05:48 Total Bilirubin 0.70 mg/dL (0.2-1.0) 03/21/22 05:48 AST 20 Units/L (15-37) 03/21/22 05:48 ALT 32 Units/L (12-78) 03/21/22 05:48 Alkaline Phosphatase 67 Units/L (46-116) 03/21/22 05:48 Creatine Kinase 87 Units/L (26-192) 03/21/22 11:36 CK-MB (CK-2) < 1.0 ng/mL (0-4.0) 03/21/22 11:36 CK/CKMB % Calc 1.2 % (<4) 03/21/22 11:36 Troponin I High Sens 11.3 ng/L (4.0-60.0) 03/21/22 11:36 C-Reactive Protein 32.60 mg/L (0-3.0) H 03/21/22 05:48 B-Natriuretic Peptide 223 pg/mL (0-79) H 03/21/22 05:48 Total Protein 7.3 g/dL (6.4-8.2) 03/21/22 05:48 Albumin 3.4 g/dL (3.4-5.0) 03/21/22 05:48 Globulin 3.9 g/dL (2.5-4.5) 03/21/22 05:48 Albumin/Globulin Ratio 0.9 Ratio (1.1-2.1) L 03/21/22 05:48 Specimen Type Clean catch urine 03/21/22 07:45 Urine Color Yellow (YELLOW) 03/21/22 07:45 Urine Appearance Clear (CLEAR) 03/21/22 07:45 Urine pH 6.0 (5.0 - 8.0) 03/21/22 07:45 Ur Specific [place] 1.010 (1.000-1.030) 03/21/22 07:45 Urine Protein 1+ (NEGATIVE) 03/21/22 07:45 Urine Glucose (UA) Negative (NEGATIVE) 03/21/22 07:45 Urine Ketones Negative (NEGATIVE) 03/21/22 07:45 Urine Blood 1+ (NEGATIVE) 03/21/22 07:45 Urine Nitrite Negative (NEGATIVE) 03/21/22 07:45 Urine Bilirubin Negative (NEGATIVE) 03/21/22 07:45 Urine Urobilinogen 1+ (NORMAL) 03/21/22 07:45 Ur Leukocyte Esterase 1+ (NEGATIVE) 03/21/22 07:45 Urine RBC 0-2 /HPF (0-3) 03/21/22 07:45 Urine WBC 0-2 /HPF (0-5) 03/21/22 07:45 Ur Squamous Epith Cells Numerous /HPF (NEGATIVE) 03/21/22 07:45 Urine Bacteria 1+ /HPF (NEGATIVE) 03/21/22 07:45 Ur Culture Indicated? No/not indicated 03/21/22 07:45 SARS-CoV-2 (PCR) Negative (NEGATIVE) 03/21/22 00:44 Influenza Type A (PCR) Negative (NEGATIVE) 03/21/22 00:44 Influenza Type B (PCR) Negative (NEGATIVE) 03/21/22 00:44 RSV (PCR) Negative (NEGATIVE) 03/21/22 00:44 S. pyogenes (TEM-PCR) Not detected (NOT DETECT) 03/21/22 00:44 Review of Systems Constitutional: Fever, Chills and Weakness Eyes: No Symptoms Reported ENT: No Symptoms Reported Respiratory: Cough, Shortness of Breath and Wheezing Cardiovascular: No Symptoms Reported Gastrointestinal: No Symptoms Reported Genitourinary: No Symptoms Reported Musculoskeletal: No Symptoms Reported Skin: No Symptoms Reported Neurological: No Symptoms Reported Physical Exam Vital Signs: Temperature 98.2 F Pulse Rate [Left Radial] 104 Pulse Rate 104 Respiratory Rate 20 Blood Pressure [Right Arm] 178/95 Blood Pressure [Left Arm] 160/97 Blood Pressure 183/84 O2 Sat by Pulse Oximetry 96 Oriented: Normal Eyes: Normal Ear: Normal Nose: Normal Throat: Normal Respiratory: Rhonchi Throughout Cardiovascular: Normal : Normal Auscultation: Bowel Sounds: Normal Palpation: Normal Tenderness: Normal Skin: Normal Musculoskeletal: Normal Psychiatric: Normal Mood Description: Calm and Appropriate Affect: Normal Speech Pattern: Clear and Appropriate Assessment/Plan (1) Community acquired pneumonia, bilateral: Status: Acute Plan: IV abx Supplemental oxygen and bronchodilators. (2) Hypoxia: Status: Acute Review H&P Reviewed: Yes Patient was examined?: Yes
--- OUTSIDE RECORDS SUMMARY | 2022-03-21 15:18 | XMS | Continuity of Care Document ---
:1980 Author Name Haz Tech, System Address Unavailable Unavailable , Care Team Providers Name Role Phone No, PCP Unavailable Unavailable Servando SYRUP MAKER COOK, Vianca Unavailable Gerry Clark Unavailable Parker Unavailable Unavailable Bowen Moore FREELANCE PROGRAMMER/APP DEVELOPER Unavailable Albert Unavailable Unavailable Unavailable Unavailable Problems Name Dates Details Acute left ankle pain (M25.572, 719.47) Comments: No signs of trauma or fracture, could be sprain or tendinitis Naproxen 500 mg BID, continue Zantac with NSAIDs Status: Active Acute left-sided low back pain without sciatica (M54.5, 724. 2) Comments: Instructed on rest and ice.Instructed to take NSAIDs with food, and do not take with any other NSAIDs. If symptoms persist or worsen, will get x-rays. Status: Active Acute right-sided low back pain without sciatica (M54.5, 724 .2) Comments: Patient given order for x-ray, and reports she will get it done when she gets off work today. Educated to take medications with food, and to not take any other NSAIDs with Diclofenac. Patient reports sh e does not want Tram adol or a muscle relaxer due to them making her sleepy in the past. Will f/u after x-ray results. Status: Active Allergic rhinitis, mild (J30.9, 477.9) S tatus: Active Constipation in female (K59.00, 564.00) Comments: Sx and physical exam c/w constipation. Recommend she take miralax, rx colace and milk of mag. Precautions discussed. Follow up prn. Status: Active Encounter for pre-employment examination (Z02.1, V70.5) Comments: Drug screen was negative. Instructed to return on Friday for BP re-evaluation.She is here for a pre-employment physical exam and a drug screen. She has a hx of hypertension, BP today is 171/107 and 16 8/96 manual. She re ports that she has not taken her BP medications today and was instructed to go home and take her BP meds, then return to office in [place] for further evaluation.1600 She came to [facility] and reports that s he was seen in Ruben Carter's office this afternoon and was given a pill in her office for her BP. She reports that her BP was down when she left [facility]'s office. On arrival to our office, her BP was 1 65/110 with no improvement after resting for 15 minutes. Status: Active Encounter for wellness examination in adult (Z00.00, V70.0) Comments: Wellness, HTN, uncontrolled.She is here for a wellness visit and f/u of her labs. Her BUN/Creatinine are slightly elevated, GFR > 60. Her BP today is elevated at 168/118, she does have a hx of HTN which is not well c ontrolled. We discussed the consequences of HTN. Encouraged her to stop by office tomorrow for BP f/u and to increase her water intake to 100 ounces per day. Other labs are normal . She denies use of tobacco products, alcohol or illicit substances. Encouraged rountine exercise. Status: Active Encounter for wellness examination in adult (Z00.00, V70.0) Comments: Patient instructed to increase potassium in diet, and on diet and lifestyle changes to help lower cholesterol, and instructed to increase water intake.K+=3.4, BUN=20, creat=1.07, VLX=902. ASCVD risk=0.8%. Status: Active Encounter for wellness examination in adult (Z00.00, V70.0) Comments: Will review labs next week and do wellness exam. Status: Active Encounter for wellness examination in adult (Z00.00, V70.0) Status: Active Epigastric pain (R10.13, 789.06) Comment s: due to epigastric tenderness will treat with pepcid and see if symptoms improved. Also educated on diet and lifestyle changes to help improve symptoms.Reports she has been on Zantac in the past, but has not been taking it for a while. Status: Active Essential hypertension (I10, 401.9) Comm ents: Pt instructed that she has refills at the pharmacy and to start back her medications today and monitor her BP. Denies any s/s. Instructed on lifestyle modifications and low sodium diet. Status: Active Exposure to COVID-19 virus (Z20.822, V01.79) Status: Active Exposure to COVID-19 virus (Z20.822, V01.79) Status: Active Fatigue (R53.83, 780.79) Status: Active Fatigue, unspecified type (R53.83, 780.79) Comments: Will get routine lab work next week. Educated on sleep hygiene. Status: Active Hip pain, right (M25.551, 719.45) Commen ts: Pt request Ibuprofen, reports it helps her pain more than the Diclofenac. Instructed to stop Diclofenac and will send in short course of Ibuprofen.Reports she had x-ray done today, and will call with results. Status: Active HTN, Benign (401.1) Status: Active Knee pain, left anterior (M25.562, 719.46) Comments: Has been using topical cream and naproxen TID Will get left knee XR to rule out any fracture or dislocation Start Tramadol 50 mg BID prn , discussed side effects. Follow up after XR resultsAcute left knee: fell while at work trying to run Status: Active Left anterior knee pain (M25.562, 719.46) Comments: Pt. given order to get x- ray of left knee to rule out fractures. Reports she does not like to take Tramadol or anything stronger because they make her sleepy.Instructed on RICE therapy. Instructed to ta ke NSAIDs with food and do not take with any other NSAIDs. Reports she did not take her Prednisone from her back pain a few weeks ago, so she started taking it today. Instructed to f/u if symptoms persist or worsen. Status: Active Left otitis media (H66.92, 382.9) Status : Active Leg pain, bilateral (M79.604, 729.5) Com ments: Differential dx: Peripheral neuropathy, sciatic nerve pain, osteoarthritis.Started on Gabapentin 200 mg at hs. Status: Active Muscle spasm of back (M62.830, 724.8) Co mments: Instructed not to take while driving or doing any hazardous activity. Status: Active Postprandial abdominal bloating (R14.0, 787.3) Comments: Differential Dx: S/p GB surgery, GERD, recurrent H-pylori.Started on Ranitidine 150 mg po hs, she is to RTC this following Friday at [facility] for re-evaluation.Bloating with increased feeling of fullness after eatin g/drinking small amounts. Recent gallbladder sugery. Has hx of positive H-pylori. Status: Active Right acute otitis media (H66.91, 382.9) Comments: Instructed to finish full course, and eat yogurt or take probiotics.Instructed not to put anything in her ears. Status: Active Shortness of breath on exertion (R06.02, 786.05) Status: Active Suspected COVID-19 virus infection (Z20.822, V01.79) Comments: Instructed that the hospital will call with results in 3-5 days, and to self-quarantine until then. Educated on proper handwashing/sanitation.Educated on supportive treatments.Instructed to RTC or go to ER with any new/worsening symptoms. Status: Active Uncontrolled hypertension (I10, 401.9) C omments: Pt. called stating she was seen in the ER and treated for bronchitis, and given lasix and told that she needed to see a delinquency prevention officer. Status: Active Vitamin D deficiency (E55.9, 268.9) Comm ents: Vitamin D level is 9. Will treat with Vitamin D and recheck labs in 6 months. Instructed pt. on use. Status: Active Medications Name Dates Details amLODIPine Besylate 5 MG Oral Tablet 1 (one) Tablet daily for 30 days Quantity: 30 {Tablet} Refills: 2 Ordered:03-Jan-2022 Vianca Al NP Start : 03-Jan-2022 Active Loratadine 10 MG Oral Tablet 1 (one) Tablet daily for 30 days Quantity: 30 {Tablet} Refills: 1 Ordered:16-Oct-2021 Bonita Canales Start : 16-Oct-2021 Active Losartan Potassium 100 MG Oral Tablet 1 (one) Tablet daily for 30 days Quantity: 30 {Tablet} Refills: 2 Ordered:03-Jan-2022 Vianca Al NP Start : 03-Jan-2022 Active Metoprolol Tartrate 50 MG Oral Tablet 1 (one) Tablet twice a day for blood pressure for 30 days Quantity: 60 {Tablet} Refills: 5 Ordered:16-Oct-2021 Vianca Al NP Start : 16-Oct-2021 Active Vitamin D (Ergocalciferol) 1.25 MG (30556 UT) Oral Capsule 1 (one) Capsule weekly for 60 days Quantity: 8 {Capsule} Refills: 1 Ordered:14-Mar-2021 Tatiana Price Start : 14-Mar-2021 Active Albuterol Sulfate HFA 108 (90 Base) MCG/ACT Inhalation Aerosol Solution 1 (one) Puff every 4-6 hours, as needed for 30 days Quantity: 1 {Inhaler} Refills: 0 Ordered:31-Mar-2020 Vinicius Bernardo Start : 31-Mar-2020 End : 30-Apr-2020 Inactive Comments:Medication taken as needed. amLODIPine Besylate Inactive amLODIPine Besylate 10 MG Oral Tablet 1 (one) Tablet daily for blood pressure for 30 days Quantity: 30 {Tablet} Refills: 0 Ordered:29-Apr-2019 Poly Ferro Start : 29-Apr-2019 End : 29-May-2019 Inactive Amoxicillin 500 MG Oral Tablet 1 (one) Tablet three times daily for 5 days Quantity: 15 {Tablet} Refills: 0 Ordered:06-Sep-2020 Vianca Al NP Start : 06-Sep-2020 End : 11-Sep-2020 Inactive Amoxicillin 875 MG Oral Tablet 1 (one) Tablet every twelve hours for 7 days Quantity: 14 {Tablet} Refills: 0 Ordered:16-Oct-2021 Vianca Al NP Start : 16-Oct-2021 End : 23-Oct-2021 Inactive Colace 100 MG Oral Capsule 1 (one) Capsule two times daily, as needed for 15 days Quantity: 30 {Capsule} Refills: 0 Ordered:17-Apr-2020 Vinicius Bernardo Start : 17-Apr-2020 End : 02-May-2020 Inactive Comments:Medication taken as needed. Cyclobenzaprine HCl 5 MG Oral Tablet 1 (one) Tablet at bedtime for 7 days Quantity: 7 {Tablet} Refills: 0 Ordered:26-Sep-2020 Vianca Al NP Start : 26-Sep-2020 End : 03-Oct-2020 Inactive Diclofenac Sodium 50 MG Oral Tablet Delayed Release 1 (one) Tablet two times daily, as needed for 14 days Quantity: 28 {Tablet} Refills: 0 Ordered:03-Jan-2022 Vianca Al NP Start : 26-Dec-2021 End : 03-Jan-2022 Inactive Comments:Medication taken as needed. take with food Diclofenac Sodium ER 100 MG Oral Tablet Extended Release 24 Hour 1 (one) Tablet daily for 7 days Quantity: 7 {Tablet} Refills: 0 Ordered:31-May-2020 Vianca Al NP Start : 31-May-2020 End : 07-Jun-2020 Inactive Comments:Take with food. Entresto 24-26 MG Oral Tablet 1 daily (24-26 MG) Inactive Famotidine 20 MG Oral Tablet 1 (one) Tablet daily for 30 days Quantity: 30 {Tablet} Refills: 0 Ordered:03-Jan-2022 Vianca Al NP Start : 03-Jan-2022 End : 02-Feb-2022 Inactive Gabapentin 100 MG Oral Capsule 2 (two) Capsule Capsule at bedtime for 30 days Quantity: 60 {Capsule} Refills: 0 Ordered:06-Sep-2020 Vianca Al NP Start : 11-Jun-2019 End : 06-Sep-2020 Inactive hydroCHLOROthiazide 12.5 MG Oral Tablet 1 (one) Tablet daily for blood pressure for 30 days Quantity: 30 {Tablet} Refills: 0 Ordered:29-Apr-2019 Poly Ferro Start : 29-Apr-2019 End : 29-May-2019 Inactive Ibuprofen 800 MG Oral Tablet 1 (one) Tablet two times daily, as needed for 10 days Quantity: 20 {Tablet} Refills: 0 Ordered:27-Dec-2021 Vianca Al NP Start : 27-Dec-2021 End : 06-Jan-2022 Inactive Comments:Medication taken as needed. take with food Lasix Inactive Lasix Inactive levoFLOXacin 750 MG Oral Tablet 1 (one) Tablet daily for 5 days Quantity: 5 {Tablet} Refills: 0 Ordered:31-Mar-2020 Yoselin Bhatti MD Start : 31-Mar-2020 End : 05-Apr-2020 Inactive Losartan Potassium Inactive methylPREDNISolone 4 MG Oral Tablet Therapy Pack 1 (one) package use as directed per instructions in pack for 6 days Quantity: 1 {Packet} Refills: 0 Ordered:26-Dec-2021 Vianca Al NP Start : 26-Dec-2021 End : 01-Jan-2022 Inactive Metoprolol Succinate ER Inactive Metoprolol Succinate ER 25 MG Oral Tablet Extended Release 24 Hour 1 two times daily (25 MG) Inactive Milk of Magnesia 2400 MG/30ML Oral Suspension 30 Milliliter daily, as needed for 30 days Quantity: 300 {Milliliter} Refills: 0 Ordered:17-Apr-2020 Vinicius Bernardo Start : 17-Apr-2020 End : 17-May-2020 Inactive Comments:Medication taken as needed. Naproxen 500 MG Oral Tablet 1 (one) Tablet two times daily as needed for 15 days Quantity: 30 {QS} Refills: 0 Ordered:10-Oct-2020 Vianca Al NP Start : 10-Oct-2020 End : 25-Oct-2020 Inactive Comments:Medication taken as needed. predniSONE 10 MG Oral Tablet 1 (one) Tablet two times daily for 5 days Quantity: 10 {Tablet} Refills: 0 Ordered:26-Sep-2020 Vianca Al NP Start : 26-Sep-2020 End : 01-Oct-2020 Inactive predniSONE 20 MG Oral Tablet 2 (two) Tablet daily for 5 days Quantity: 10 {Tablet} Refills: 0 Ordered:31-Mar-2020 Yoselin Bhatti MD Start : 31-Mar-2020 End : 05-Apr-2020 Inactive traMADol HCl 50 MG Oral Tablet 1 (one) Tablet two times daily, as needed for 30 days Quantity: 60 {Tablet} Refills: 0 Ordered:06-Sep-2020 Vianca Al NP Start : 29-Dec-2019 End : 06-Sep-2020 Inactive Comments:Medication taken as needed. raNITIdine HCl 150 MG Oral Tablet 1 (one) Tablet Tablet at bedtime for 90 days Quantity: 90 {Tablet} Refills: 0 Ordered:11-Jun-2019 Vianca Al NP Start : 11-Jun-2019 End : 06-Sep-2020 Discontinued Comments:This order discontinued per [facility]. Allergies and Adverse Reactions Name Dates Details No Known Drug Allergies (Allergy) Onset: 27-Apr-2019 Status : Active Procedures Procedure Dates Details ADMINISTRATION OF ORAL MEDICATION IN Date: 16-Oct-2021 Com pleted 16-Oct-2021 OFFICE ([id number]) VENIPUNCTURE FOR BLOOD TEST (48849) Date: 07-Mar-2021 Comp leted 07-Mar-2021 VENIPUNCTURE FOR BLOOD TEST (22742) Date: 13-Sep-2020 Comp leted 13-Sep-2020 VENIPUNCTURE FOR BLOOD TEST ([id number]) Date: 06-Jul-2019 Comp leted 06-Jul-2019 Cholecystectomy Completed Comments: No post-op complications. Outpatient. Tubal Ligation Completed Family History Unknown Family Member Name Dates Details Mother Comments: Hyperlipid emia. Thyroid Nodule. Status: Active Social History Name Dates Details Alcohol Use: Occasional alcohol use. Sta tus: Active Caffeine Use Status: Active Exercise History: Inactive. Status: Acti ve No Drug Use Status: Active Non Smoker/No Tobacco Use Status: Active Seat Belt Use: Occasionally uses seat belts. Status: Active Vital Signs Date Test Result Details :49 Comments: repor ts she has not taken her BP medications in 3 days becaus e she did not know she had refills at pharmacy, and sh e is going to get them filled after this. Denies any s/s. Body temperature 98 f Comments: Method: Or al Heart Rate 91 /min Comments: Pattern: R egular Respiratory rate 20 /min Comments: Pattern: U nlabored O2 SAT 96 % Comments: Room air Systolic blood pressure 164 mm[Hg] Comments: Kenneth t Position: Sitting; Cuff Location: Left Arm; Cuff Size: Standard Diastolic blood pressure 97 mm[Hg] Comments: Patigracy nt Position: Sitting; Cuff Location: Left Arm; Cuff Size: Standard Weight 238 lb Body height 65 in Body mass index (BMI) [Ratio] 39.60 kg/m2 Body surface area Derived from formula 2.13 m2 :19 Systolic blood pressure 162 mm[Hg] Comment s: Patient Position: Sitting; Cuff Location: Left Arm; Cuff Size: Standard Diastolic blood pressure 98 mm[Hg] Comments: Patie nt Position: Sitting; Cuff Location: Left Arm; Cuff Size: Standard :36 Body temperature 98.1 f Comments: Meth od: Oral Heart Rate 96 /min Comments: Pattern: R egular Respiratory rate 20 /min Comments: Pattern: U nlabored O2 SAT 95 % Comments: Room air Systolic blood pressure 172 mm[Hg] Comments: Patien t Position: Sitting; Cuff Location: Left Arm; Cuff Size: Standard Diastolic blood pressure 116 mm[Hg] Comments: Patie nt Position: Sitting; Cuff Location: Left Arm; Cuff Size: Standard Weight 231.5 lb Body height 65 in Body mass index (BMI) [Ratio] 38.52 kg/m2 Body surface area Derived from formula 2.11 m2 :38 Body temperature 98.4 f Comments: Metho d: Oral Heart Rate 92 /min Comments: Pattern: R egular Respiratory rate 20 /min Comments: Pattern: U nlabored O2 SAT 98 % Comments: Room air Systolic blood pressure 166 mm[Hg] Comments: Patien t Position: Sitting; Cuff Location: Left Arm; Cuff Size: Standard Diastolic blood pressure 101 mm[Hg] Comments: Patie nt Position: Sitting; Cuff Location: Left Arm; Cuff Size: Standard Weight 222.125 lb Body height 65 in Body mass index (BMI) [Ratio] 36.96 kg/m2 Body surface area Derived from formula 2.07 m2 :31 Body temperature 98.5 f Comments: Meth od: Temporal Heart Rate 88 /min Comments: Pattern: R egular Respiratory rate 18 /min Comments: Pattern: U nlabored O2 SAT 96 % Comments: Room air Systolic blood pressure 146 mm[Hg] Comments: Patien t Position: Sitting; Cuff Location: Left Arm; Cuff Size: Standard Diastolic blood pressure 90 mm[Hg] Comments: Patie nt Position: Sitting; Cuff Location: Left Arm; Cuff Size: Standard Weight 224 lb :48 Body temperature 97.8 f Comments: Metho d: Oral Heart Rate 74 /min Comments: Pattern: R egular Respiratory rate 18 /min Comments: Pattern: U nlabored O2 SAT 98 % Comments: Room air Systolic blood pressure 145 mm[Hg] Comments: Patien t Position: Sitting; Cuff Location: Left Arm; Cuff Size: Standard Diastolic blood pressure 87 mm[Hg] Comments: Patie nt Position: Sitting; Cuff Location: Left Arm; Cuff Size: Standard Weight 222.125 lb Body height 65 in Body mass index (BMI) [Ratio] 36.96 kg/m2 Body surface area Derived from formula 2.07 m2 :48 Body temperature 97.1 f Comments: Meth od: Oral Heart Rate 81 /min Comments: Pattern: R egular Respiratory rate 18 /min Comments: Pattern: U nlabored O2 SAT 97 % Comments: Room air Systolic blood pressure 165 mm[Hg] Comments: Patien t Position: Sitting; Cuff Location: Left Arm; Cuff Size: Standard Diastolic blood pressure 93 mm[Hg] Comments: Patie nt Position: Sitting; Cuff Location: Left Arm; Cuff Size: Standard Weight 222.125 lb Body height 65 in Body mass index (BMI) [Ratio] 36.96 kg/m2 Body surface area Derived from formula 2.07 m2 :33 Body temperature 98.6 f Comments: Meth od: Oral Heart Rate 92 /min Comments: Pattern: R egular Respiratory rate 18 /min Comments: Pattern: U nlabored O2 SAT 97 % Comments: Room air Systolic blood pressure 150 mm[Hg] Comments: Patien t Position: Sitting; Cuff Location: Left Arm; Cuff Size: Standard Diastolic blood pressure 94 mm[Hg] Comments: Patie nt Position: Sitting; Cuff Location: Left Arm; Cuff Size: Standard :52 Body temperature 98.8 f Comments: Metho d: Oral Heart Rate 86 /min Comments: Pattern: R egular Respiratory rate 18 /min Comments: Pattern: U nlabored O2 SAT 95 % Comments: Room air Systolic blood pressure 131 mm[Hg] Comments: Patien t Position: Sitting; Cuff Location: Left Arm; Cuff Size: Standard Diastolic blood pressure 88 mm[Hg] Comments: Patie nt Position: Sitting; Cuff Location: Left Arm; Cuff Size: Standard Weight 222.125 lb :45 Body temperature 98.2 f Comments: Metho d: Oral Heart Rate 100 /min Comments: Pattern: R egular Respiratory rate 18 /min Comments: Pattern: U nlabored O2 SAT 97 % Comments: Room air Systolic blood pressure 158 mm[Hg] Comments: Patien t Position: Sitting; Cuff Location: Left Arm; Cuff Size: Standard Diastolic blood pressure 95 mm[Hg] Comments: Patie nt Position: Sitting; Cuff Location: Left Arm; Cuff Size: Standard Weight 219.25 lb :51 Body temperature 98.1 f Comments: Metho d: Oral Heart Rate 85 /min Comments: Pattern: R egular Respiratory rate 18 /min Comments: Pattern: U nlabored O2 SAT 95 % Comments: Room air Systolic blood pressure 152 mm[Hg] Comments: Patien t Position: Sitting; Cuff Location: Left Arm; Cuff Size: Standard Diastolic blood pressure 95 mm[Hg] Comments: Patie nt Position: Sitting; Cuff Location: Left Arm; Cuff Size: Standard Weight 224.5 lb :19 Body temperature 98.2 f Comments: Meth od: Oral Heart Rate 82 /min Comments: Pattern: R egular Respiratory rate 18 /min Comments: Pattern: U nlabored O2 SAT 96 % Comments: Room air Systolic blood pressure 168 mm[Hg] Comments: Patien t Position: Sitting; Cuff Location: Left Arm; Cuff Size: Standard Diastolic blood pressure 95 mm[Hg] Comments: Patie nt Position: Sitting; Cuff Location: Left Arm; Cuff Size: Standard Weight 223.375 lb :05 Body temperature 98.5 f Comments: Meth od: Oral Heart Rate 101 /min Comments: Pattern: R egular Respiratory rate 20 /min Comments: Pattern: U nlabored O2 SAT 98 % Comments: Room air Systolic blood pressure 152 mm[Hg] Comments: Patien t Position: Sitting; Cuff Location: Left Arm; Cuff Size: Standard Diastolic blood pressure 86 mm[Hg] Comments: Patie nt Position: Sitting; Cuff Location: Left Arm; Cuff Size: Standard Weight 220.125 lb :42 Body temperature 98.4 f Comments: Metho d: Oral Heart Rate 91 /min Comments: Pattern: R egular Respiratory rate 20 /min Comments: Pattern: U nlabored O2 SAT 94 % Comments: Room air Systolic blood pressure 172 mm[Hg] Comments: Patien t Position: Sitting; Cuff Location: Left Arm; Cuff Size: Standard Diastolic blood pressure 108 mm[Hg] Comments: Patie nt Position: Sitting; Cuff Location: Left Arm; Cuff Size: Standard :46 Body temperature 98.4 f Comments: Metho d: Oral Heart Rate 82 /min Comments: Pattern: R egular Respiratory rate 18 /min Comments: Pattern: U nlabored O2 SAT 97 % Comments: Room air Systolic blood pressure 152 mm[Hg] Comments: Patien t Position: Sitting; Cuff Location: Right Arm; Cuff Size: Standard Diastolic blood pressure 101 mm[Hg] Comments: Patie nt Position: Sitting; Cuff Location: Right Arm; Cuff Size: Standard Weight 218.5 lb Body height 65 in Body mass index (BMI) [Ratio] 36.36 kg/m2 Body surface area Derived from formula 2.05 m2 :55 Body temperature 98.4 f Comments: Meth od: Oral Heart Rate 104 /min Comments: Pattern: R egular Respiratory rate 18 /min Comments: Pattern: U nlabored O2 SAT 99 % Comments: Room air Systolic blood pressure 168 mm[Hg] Comments: Patien t Position: Sitting; Cuff Location: Left Arm; Cuff Size: Standard Diastolic blood pressure 106 mm[Hg] Comments: Patie nt Position: Sitting; Cuff Location: Left Arm; Cuff Size: Standard Weight 222.375 lb Body height 65 in Body mass index (BMI) [Ratio] 37.00 kg/m2 Body surface area Derived from formula 2.07 m2 :22 Body temperature 98.9 f Comments: Meth od: Oral Heart Rate 91 /min Comments: Pattern: R egular Respiratory rate 16 /min Comments: Pattern: U nlabored O2 SAT 99 % Comments: Room air Systolic blood pressure 168 mm[Hg] Comments: Patien t Position: Sitting; Cuff Location: Left Arm; Cuff Size: Standard Diastolic blood pressure 118 mm[Hg] Comments: Patie nt Position: Sitting; Cuff Location: Left Arm; Cuff Size: Standard Weight 225.375 lb Body height 65 in Body mass index (BMI) [Ratio] 37.50 kg/m2 Body surface area Derived from formula 2.08 m2 :34 Body temperature 98.8 f Comments: Metho d: Oral Heart Rate 90 /min Comments: Pattern: R egular Respiratory rate 18 /min Comments: Pattern: U nlabored O2 SAT 99 % Comments: Room air Systolic blood pressure 155 mm[Hg] Comments: Patien t Position: Sitting; Cuff Location: Left Arm; Cuff Size: Standard Diastolic blood pressure 101 mm[Hg] Comments: Patie nt Position: Sitting; Cuff Location: Left Arm; Cuff Size: Standard Weight 224.125 lb Body height 65 in Body mass index (BMI) [Ratio] 37.30 kg/m2 Body surface area Derived from formula 2.08 m2 :52 Body temperature 98.5 f Comments: Metho d: Oral Heart Rate 109 /min Comments: Pattern: R egular Respiratory rate 18 /min Comments: Pattern: U nlabored O2 SAT 98 % Comments: Room air Systolic blood pressure 151 mm[Hg] Comments: Patien t Position: Sitting; Cuff Location: Left Arm; Cuff Size: Standard Diastolic blood pressure 91 mm[Hg] Comments: Patie nt Position: Sitting; Cuff Location: Left Arm; Cuff Size: Standard Weight 224.5 lb Body height 65 in Body mass index (BMI) [Ratio] 37.36 kg/m2 Body surface area Derived from formula 2.08 m2 :48 Comments: cloni dine 0.1 mg administered at 12:45, per S Moore Body temperature 98.3 f Comments: Method: Or al Heart Rate 68 /min Comments: Pattern: R egular Respiratory rate 18 /min Comments: Pattern: U nlabored O2 SAT 97 % Comments: Room air Systolic blood pressure 167 mm[Hg] Comments: Patien t Position: Sitting; Cuff Location: Left Arm; Cuff Size: Standard Diastolic blood pressure 114 mm[Hg] Comments: Patie nt Position: Sitting; Cuff Location: Left Arm; Cuff Size: Standard Weight 233.125 lb Body height 65 in Body mass index (BMI) [Ratio] 38.79 kg/m2 Body surface area Derived from formula 2.11 m2 :54 Body temperature 98.4 f Comments: Meth od: Oral Heart Rate 72 /min Comments: Pattern: R egular Respiratory rate 18 /min Comments: Pattern: U nlabored O2 SAT 99 % Comments: Room air Systolic blood pressure 168 mm[Hg] Comments: Patien t Position: Sitting; Cuff Location: Left Arm; Cuff Size: Standard Diastolic blood pressure 96 mm[Hg] Comments: Patie nt Position: Sitting; Cuff Location: Left Arm; Cuff Size: Standard Weight 236.5 lb Body height 66 in Body mass index (BMI) [Ratio] 38.17 kg/m2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
[2022-03-22 05:03] LABS: BASOPHILS % (AUTO) 0.2 % (0.2-1.0); HEMATOCRIT 30.8 % (36.0-47.0); HEMOGLOBIN 10.3 g/dL (12.0-16.0); LYMPHOCYTES # (AUTO) 1.5 X10^3/uL (1.3-2.9); LYMPHOCYTES % (AUTO) 8.8 % (21.0-51.0); MEAN CORPUSCULAR HEMOGLOBIN 25.3 pg (27.0-34.0); MEAN CORPUSCULAR HGB CONC 33.6 g/dL (33.0-35.0); MEAN CORPUSCULAR VOLUME 75.5 fL (80.0-100.0); MEAN PLATELET VOLUME 9.8 fL (7.4-11.0); MONOCYTES # (AUTO) 1.2 x10^3/uL (0.3-0.8); NEUTROPHILS # (AUTO) 13.9 x10^3/uL (2.2-4.8); RED BLOOD COUNT 4.08 X10^6/uL (3.5-5.4); RED CELL DISTRIBUTION WIDTH 17.7 % (11.6-16.5); WHITE BLOOD COUNT 16.6 X10^3/uL (3.6-10.0)
[2022-03-22] MEDS: ZOSYN VIAL 3.375 GRAMS 3.375 G in NS 100 ML IV 100 ML IV SCH ×3 (05:30→21:35)
[2022-03-22 05:35] LABS: ALANINE AMINOTRANSFERASE 27 Units/L (12-78); ALBUMIN 2.8 g/dL (3.4-5.0); ALKALINE PHOSPHATASE 57 Units/L (46-116); ASPARTATE AMINO TRANSFERASE 13 Units/L (15-37); BLOOD UREA NITROGEN 17 mg/dL (7-18); CALCIUM 8.3 mg/dL (8.5-10.1); CARBON DIOXIDE 23.6 mmol/L (21-32); CHLORIDE 107 mmol/L (98-107); COR CA(FOR HYPOALB) 9.3 mg/dL (8.5-10.1); COR NA(FOR HYPERGLY) 140 mmol/L (136-145); CREATININE 0.99 mg/dL (0.55-1.02); SODIUM 140 mmol/L (136-145); TOTAL PROTEIN 6.4 g/dL (6.4-8.2); eGFR NON BLACK RACES > 60 (>60)
--- NOTE | 2022-03-22 05:42 | RAD ---
HISTORYPNEUMONIA F/U Relevant Clinical InformationSTUDYCHEST, 1 [id number]/19/2022 theFINDINGSThe trachea is midline. The cardiac silhouette is mildly enlarged. Interval improvement in bilateral parenchymal opacities from previous 03/21/2022. No pneumothorax or pleural effusion. Is. The bony thorax is unremarkable.IMPRESSIONMild cardiomegaly.Interval improvement in bilateral parenchymal opacities representing edema and/or infiltrates..Electronically signed by: Samuel Graff (March 22, 2022 05:41:49)
[2022-03-22] MEDS: ROBITUSSIN DM PO SCH ×5 (07:12→21:35)
[2022-03-22] MEDS ORDERED: ZITHROMAX INJ 500 MG VIAL IV ONE (07:49)
[2022-03-22] MEDS: ZITHROMAX INJ 500 MG VIAL 500 MG in D5W 250 ML IV 250 ML IV SCH (07:59)
[2022-03-22] MEDS: VSL#3 PO SCH (08:00)
[2022-03-22] MEDS: NS 1,000 ML IV 1,000 ML IV SCH (08:06)
[2022-03-22] MEDS: DUONEB 0.5 MG/3 MG (3 mL) NEB SCH ×4 (09:25→21:08)
[2022-03-22] MEDS: PULMICORT NEB TX 0.5 MG NEB SCH ×2 (09:25→21:09)
[2022-03-22] MEDS: COZAAR PO SCH (11:42)
[2022-03-22] MEDS ORDERED: CATAPRES TAB 0.1 MG PO ONE (12:47)
[2022-03-22] MEDS ORDERED: APRESOLINE INJ 20 MG VIAL IVP PRN (12:47)
[2022-03-22] MEDS: LOPRESSOR TAB 50 MG PO SCH (21:35)
--- NOTE | 2022-03-23 01:16 | PCM.PROG ---
Progress Note Progress Note for Day of Date of Exam: 03/22/22 Subjective Subjective: Pt is a 41 year old female past medical history of hypertension, admitted for bilateral pneumonia and acute hypoxia. This morning she reports some improvement in her symptoms and breathing status. Labs/imaging: Wbc 16.6., Hgb 10.3, Plt 220, Na 140, K 4.2, Creatinine 0.99, Glucose 120, Sputum cultures unable to obtain yet, Blood cultures pending, CXR obtained this morning shows: Interval improvement in bilateral parenchymal opacities representing edema and/or infiltrates. Will continue on current antibiotics: Zosyn and azithromycin. Treatments also include scheduled bronchodilators. Wean/titrate supplemental oxygen as tolerated, currently requiring 2L nasal cannula. Continue with current treatment plan, resume home medications and closely monitor and follow up labs/imaging in the morning. Past Medical Family Social History Past Med/Fam/Surg Hx: No changes since H&P Allergies: Allergies No Known Drug Allergies Allergy (Verified 05/30/17 03:50) Review of Systems ROS: No change since H&P Vital Signs and I&O's Vital Signs: Temperature 99.1 F Pulse Rate [Left Radial] 85 Pulse Rate 100 Respiratory Rate 18 Blood Pressure [Right Arm] 141/92 Blood Pressure [Left Arm] 165/87 Blood Pressure 183/84 O2 Sat by Pulse Oximetry 99 Intake and Output: Intake & Output 03/20/22 03/21/22 03/22/22 03/23/22 23:59 23:59 23:59 23:59 Intake Total 1095 / 1095 2973 / 2973 Balance 1095 / 1095 2973 / 2973 Physical Exam Oriented: Normal Eyes: Normal Ear: Normal Nose: Normal Throat: Normal Respiratory: Rhonchi Cardiovascular: Normal : Normal Auscultation: Bowel Sounds: Normal Tenderness: Normal Skin: Normal Musculoskeletal: Normal Psychiatric: Normal Mood Description: Calm and Appropriate Affect: Normal Speech Pattern: Clear and Appropriate Laboratory and Diagnostics Result Diagrams: 03/22/22 04:00 03/22/22 04:00 Labs: Laboratory WBC 16.6 X10^3/uL (3.6-10.0) H 03/22/22 04:00 RBC 4.08 X10^6/uL (3.5-5.4) 03/22/22 04:00 Hgb 10.3 g/dL (12.0-16.0) L 03/22/22 04:00 Hct 30.8 % (36.0-47.0) L 03/22/22 04:00 MCV 75.5 fL (80.0-100.0) L 03/22/22 04:00 MCH 25.3 pg (27.0-34.0) L 03/22/22 04:00 MCHC 33.6 g/dL (33.0-35.0) 03/22/22 04:00 RDW 17.7 % (11.6-16.5) H 03/22/22 04:00 Plt Count 220 X10^3/uL (150.0-450.0) 03/22/22 04:00 MPV 9.8 fL (7.4-11.0) 03/22/22 04:00 Neut % (Auto) 84.0 % (42.0-75.0) H 03/22/22 04:00 Lymph % (Auto) 8.8 % (21.0-51.0) L 03/22/22 04:00 Crane % (Auto) 7.0 % (0.0-13.0) 03/22/22 04:00 Eos % (Auto) 0.0 % (0.9-2.9) L 03/22/22 04:00 Baso % (Auto) 0.2 % (0.2-1.0) 03/22/22 04:00 Neut # (Auto) 13.9 x10^3/uL (2.2-4.8) H 03/22/22 04:00 Lymph # (Auto) 1.5 X10^3/uL (1.3-2.9) 03/22/22 04:00 Crane # (Auto) 1.2 x10^3/uL (0.3-0.8) H 03/22/22 04:00 Eos # (Auto) 0.0 x10^3/uL (0.0-0.2) 03/22/22 04:00 Baso # (Auto) 0.0 X10^3/uL (0.0-0.1) 03/22/22 04:00 Absolute Nucleated RBC 0.0 /100WBC 03/22/22 04:00 PT 15.1 SECONDS (11.8-14.3) 03/21/22 05:48 INR Target Range - 03/21/22 05:48 INR 1.23 (0.8-1.3) 03/21/22 05:48 APTT 24.0 SECONDS (22.9-36.5) 03/21/22 05:48 PTT Comment - 03/21/22 05:48 D-Dimer 1.74 ug/ml (0.0-0.57) H* 03/21/22 05:48 Sample Site Rr 03/21/22 05:37 ABG pH 7.470 (7.35-7.45) H 03/21/22 05:37 ABG pCO2 33.0 mmHg (35.0-45.0) L 03/21/22 05:37 ABG pO2 47.0 mmHg (80.0-100.0) L* 03/21/22 05:37 ABG HCO3 24.0 mmol/L (22-26) 03/21/22 05:37 ABG O2 Saturation 86.0 % (90-100) L 03/21/22 05:37 ABG Base Excess 0.8 mmol/L (-2.0-2.0) 03/21/22 05:37 Gabe Test Pos 03/21/22 05:37 A-a Gradient 61.0 mmHg 03/21/22 05:37 FiO2 21.0 03/21/22 05:37 Blood Gas Comments Bettie well 03/21/22 05:37 Sodium 140 mmol/L (136-145) 03/22/22 04:00 Corrected Sodium 140 mmol/L (136-145) 03/22/22 04:00 Potassium 4.2 mmol/L (3.5-5.1) 03/22/22 04:00 Chloride 107 mmol/L (98-107) 03/22/22 04:00 Carbon Dioxide 23.6 mmol/L (21-32) 03/22/22 04:00 BUN 17 mg/dL (7-18) 03/22/22 04:00 Creatinine 0.99 mg/dL (0.55-1.02) 03/22/22 04:00 Est GFR (MDRD) Af Amer > 60 (>60) 03/22/22 04:00 Est GFR (MDRD) Non-Af > 60 (>60) 03/22/22 04:00 Glucose 120 mg/dL (65-99) H 03/22/22 04:00 Lactic Acid 1.0 mmol/L (0.4-2.0) 03/21/22 05:48 Calcium 8.3 mg/dL (8.5-10.1) L 03/22/22 04:00 Corrected Calcium 9.3 mg/dL (8.5-10.1) 03/22/22 04:00 Ferritin 26 ng/mL (8-252) 03/21/22 05:48 Total Bilirubin 0.60 mg/dL (0.2-1.0) 03/22/22 04:00 AST 13 Units/L (15-37) L 03/22/22 04:00 ALT 27 Units/L (12-78) 03/22/22 04:00 Alkaline Phosphatase 57 Units/L (46-116) 03/22/22 04:00 Creatine Kinase 87 Units/L (26-192) 03/21/22 11:36 CK-MB (CK-2) < 1.0 ng/mL (0-4.0) 03/21/22 11:36 CK/CKMB % Calc 1.2 % (<4) 03/21/22 11:36 Troponin I High Sens 11.3 ng/L (4.0-60.0) 03/21/22 11:36 C-Reactive Protein 32.60 mg/L (0-3.0) H 03/21/22 05:48 B-Natriuretic Peptide 223 pg/mL (0-79) H 03/21/22 05:48 Total Protein 6.4 g/dL (6.4-8.2) 03/22/22 04:00 Albumin 2.8 g/dL (3.4-5.0) L 03/22/22 04:00 Globulin 3.6 g/dL (2.5-4.5) 03/22/22 04:00 Albumin/Globulin Ratio 0.8 Ratio (1.1-2.1) L 03/22/22 04:00 Specimen Type Clean catch urine 03/21/22 07:45 Urine Color Yellow (YELLOW) 03/21/22 07:45 Urine Appearance Clear (CLEAR) 03/21/22 07:45 Urine pH 6.0 (5.0 - 8.0) 03/21/22 07:45 Ur Specific Glennie 1.010 (1.000-1.030) 03/21/22 07:45 Urine Protein 1+ (NEGATIVE) 03/21/22 07:45 Urine Glucose (UA) Negative (NEGATIVE) 03/21/22 07:45 Urine Ketones Negative (NEGATIVE) 03/21/22 07:45 Urine Blood 1+ (NEGATIVE) 03/21/22 07:45 Urine Nitrite Negative (NEGATIVE) 03/21/22 07:45 Urine Bilirubin Negative (NEGATIVE) 03/21/22 07:45 Urine Urobilinogen 1+ (NORMAL) 03/21/22 07:45 Ur Leukocyte Esterase 1+ (NEGATIVE) 03/21/22 07:45 Urine RBC 0-2 /HPF (0-3) 03/21/22 07:45 Urine WBC 0-2 /HPF (0-5) 03/21/22 07:45 Ur Squamous Epith Cells Numerous /HPF (NEGATIVE) 03/21/22 07:45 Urine Bacteria 1+ /HPF (NEGATIVE) 03/21/22 07:45 Ur Culture Indicated? No/not indicated 03/21/22 07:45 SARS-CoV-2 (PCR) Negative (NEGATIVE) 03/21/22 00:44 Influenza Type A (PCR) Negative (NEGATIVE) 03/21/22 00:44 Influenza Type B (PCR) Negative (NEGATIVE) 03/21/22 00:44 RSV (PCR) Negative (NEGATIVE) 03/21/22 00:44 S. pyogenes (TEM-PCR) Not detected (NOT DETECT) 03/21/22 00:44 Plan (1) Community acquired pneumonia, bilateral: Status: Acute Plan: IV abx Supplemental oxygen and bronchodilators. (2) Hypoxia: Status: Acute
[2022-03-23] MEDS: ZOSYN VIAL 3.375 GRAMS 3.375 G in NS 100 ML IV 100 ML IV SCH ×3 (06:10→21:03)
[2022-03-23] MEDS: NS 1,000 ML IV 1,000 ML IV SCH (06:11)
[2022-03-23 06:13] LABS: ALANINE AMINOTRANSFERASE 22 Units/L (12-78); ALBUMIN 2.7 g/dL (3.4-5.0); ALKALINE PHOSPHATASE 47 Units/L (46-116); ASPARTATE AMINO TRANSFERASE 11 Units/L (15-37); BLOOD UREA NITROGEN 18 mg/dL (7-18); CALCIUM 8.1 mg/dL (8.5-10.1); CARBON DIOXIDE 25.9 mmol/L (21-32); CHLORIDE 108 mmol/L (98-107); COR CA(FOR HYPOALB) 9.1 mg/dL (8.5-10.1); CREATININE 1.02 mg/dL (0.55-1.02); SODIUM 140 mmol/L (136-145); TOTAL PROTEIN 6.1 g/dL (6.4-8.2); eGFR NON BLACK RACES > 60 (>60)
[2022-03-23 06:22] LABS: BASOPHILS # (AUTO) 0.1 X10^3/uL (0.0-0.1); BASOPHILS % (AUTO) 0.5 % (0.2-1.0); EOSINOPHILS # (AUTO) 0.2 x10^3/uL (0.0-0.2); EOSINOPHILS % (AUTO) 1.6 % (0.9-2.9); HEMATOCRIT 29.6 % (36.0-47.0); HEMOGLOBIN 9.9 g/dL (12.0-16.0); LYMPHOCYTES # (AUTO) 2.9 X10^3/uL (1.3-2.9); LYMPHOCYTES % (AUTO) 27.4 % (21.0-51.0); MEAN CORPUSCULAR HEMOGLOBIN 25.6 pg (27.0-34.0); MEAN CORPUSCULAR HGB CONC 33.5 g/dL (33.0-35.0); MEAN CORPUSCULAR VOLUME 76.2 fL (80.0-100.0); MEAN PLATELET VOLUME 9.7 fL (7.4-11.0); MONOCYTES # (AUTO) 0.8 x10^3/uL (0.3-0.8); MONOCYTES % (AUTO) 7.5 % (0.0-13.0); NEUTROPHILS # (AUTO) 6.8 x10^3/uL (2.2-4.8); RED BLOOD COUNT 3.88 X10^6/uL (3.5-5.4); RED CELL DISTRIBUTION WIDTH 17.6 % (11.6-16.5); WHITE BLOOD COUNT 10.8 X10^3/uL (3.6-10.0)
--- NOTE | 2022-03-23 06:33 | RAD ---
HISTORYPneumoniaSTUDYAP [id number]/20/2022FINDINGSStable and unchanged heart size. Indistinct pulmonary infiltrates are similar. No lobar consolidation, developing pleural fluid or pneumothorax noted.IMPRESSIONNo change; no new abnormality.Electronically signed by: ABBY LOERA (March 23, 2022 06:32:53)
[2022-03-23] MEDS ORDERED: ZITHROMAX INJ 500 MG VIAL IV ONE (08:22)
[2022-03-23] MEDS: PULMICORT NEB TX 0.5 MG NEB SCH ×2 (09:27→20:35)
[2022-03-23] MEDS: DUONEB 0.5 MG/3 MG (3 mL) NEB SCH ×4 (09:27→20:35)
[2022-03-23] MEDS: ROBITUSSIN DM PO SCH ×4 (09:56→21:03)
[2022-03-23] MEDS: VSL#3 PO SCH (09:56)
[2022-03-23] MEDS: LOPRESSOR TAB 50 MG PO SCH ×2 (09:56→21:02)
[2022-03-23] MEDS: COZAAR PO SCH (09:56)
[2022-03-23] MEDS: ZITHROMAX INJ 500 MG VIAL 500 MG in D5W 250 ML IV 250 ML IV SCH (09:57)
[2022-03-24 05:06] LABS: BASOPHILS % (AUTO) 0.5 % (0.2-1.0); EOSINOPHILS # (AUTO) 0.4 x10^3/uL (0.0-0.2); EOSINOPHILS % (AUTO) 3.7 % (0.9-2.9); HEMATOCRIT 29.5 % (36.0-47.0); LYMPHOCYTES # (AUTO) 2.6 X10^3/uL (1.3-2.9); LYMPHOCYTES % (AUTO) 26.5 % (21.0-51.0); MEAN CORPUSCULAR HEMOGLOBIN 25.5 pg (27.0-34.0); MEAN CORPUSCULAR HGB CONC 33.8 g/dL (33.0-35.0); MEAN CORPUSCULAR VOLUME 75.3 fL (80.0-100.0); MEAN PLATELET VOLUME 9.5 fL (7.4-11.0); MONOCYTES # (AUTO) 0.7 x10^3/uL (0.3-0.8); MONOCYTES % (AUTO) 6.8 % (0.0-13.0); NEUTROPHILS # (AUTO) 6.1 x10^3/uL (2.2-4.8); NEUTROPHILS % (AUTO) 62.5 % (42.0-75.0); RED BLOOD COUNT 3.92 X10^6/uL (3.5-5.4); RED CELL DISTRIBUTION WIDTH 17.7 % (11.6-16.5); WHITE BLOOD COUNT 9.7 X10^3/uL (3.6-10.0)
[2022-03-24 05:25] LABS: ALANINE AMINOTRANSFERASE 23 Units/L (12-78); ALBUMIN 2.7 g/dL (3.4-5.0); ALKALINE PHOSPHATASE 51 Units/L (46-116); ASPARTATE AMINO TRANSFERASE 13 Units/L (15-37); BLOOD UREA NITROGEN 17 mg/dL (7-18); CALCIUM 8.3 mg/dL (8.5-10.1); CARBON DIOXIDE 23.2 mmol/L (21-32); CHLORIDE 106 mmol/L (98-107); COR CA(FOR HYPOALB) 9.3 mg/dL (8.5-10.1); CREATININE 1.14 mg/dL (0.55-1.02); SODIUM 137 mmol/L (136-145); TOTAL PROTEIN 6.2 g/dL (6.4-8.2); eGFR NON BLACK RACES 56 (>60)
[2022-03-24] MEDS: NS 1,000 ML IV 1,000 ML IV SCH (06:04)
[2022-03-24] MEDS: ZOSYN VIAL 3.375 GRAMS 3.375 G in NS 100 ML IV 100 ML IV SCH (06:04)
--- NOTE | 2022-03-24 08:19 | RAD ---
HISTORYPneumoniaSTUDYAP chestCOMPARISON5:14 a.m. 03/23/2022FINDINGSSimilar appearance of cardiomegaly and mild bilateral infiltrates. No airspace consolidation, complicating pneumothorax or developing pleural effusion is identified.IMPRESSIONNo change.Electronically signed by: ABBY LOERA (March 24, 2022 08:17:21)
[2022-03-24] MEDS ORDERED: ZOFRAN INJ 4 MG VIAL IVP PRN (08:29)
[2022-03-24] MEDS: ZITHROMAX INJ 500 MG VIAL 500 MG in D5W 250 ML IV 250 ML IV SCH (08:47)
[2022-03-24] MEDS: LOPRESSOR TAB 50 MG PO SCH (08:48)
[2022-03-24] MEDS: COZAAR PO SCH (08:48)
[2022-03-24] MEDS: ROBITUSSIN DM PO SCH (08:48)
[2022-03-24] MEDS: VSL#3 PO SCH (08:48)
[2022-03-24] MEDS: DUONEB 0.5 MG/3 MG (3 mL) NEB SCH (09:12)
[2022-03-24] MEDS: PULMICORT NEB TX 0.5 MG NEB SCH (09:12)
[2022-03-24 12:42] VITALS: BP 163/103
== END 2022-03-24 13:00 | disposition home or self-care (01) | DRG 195 ==
LOC: ER 05:18 → MED/SURG 08:09
PROVIDERS: ADMIT Family Medicine; ATTEND Family Medicine
DX: R09.02 Hypoxemia; R79.1 Abnormal coagulation profile; Z20.822 Contact with and (suspected) exposure to COVID-19; J18.8 Other pneumonia, unspecified organism; R06.02 Shortness of breath; R07.89 Other chest pain; R79.89 Other specified abnormal findings of blood chemistry; R79.82 Elevated C-reactive protein (CRP)